=== PATIENT | male | born 1930 | race Caucasian/White ===

== ENCOUNTER 2016-05-18 13:48 | Inpatient (IN) ==
[2016-05-18] MEDS ORDERED: 0.9 % Sodium Chloride 500 ML IVC ONE ×2 (14:04→16:19)
--- NOTE | 2016-05-18 14:32 | Emergency Department Note ---
Disposition Clinical Impression: SIRS (systemic inflammatory response syndrome), Multiple lung nodules Ascites Qualifiers: Ascites type: other type Qualified Code(s): R18.8 - Other ascites Disposition: Admitted As Inpatient Condition: Good General Adult HPI - General Chief complaint: ED Shortness of Breath/Dyspnea Stated complaint: leonor/abd swelling Time Seen by Provider: 05/18/16 13:51 Source: patient, EMS Limitations: age Nursing Notes Reviewed: Yes Vital Signs Reviewed: Yes - History of Present Illness HPI Narrative: Patient states a 2 day history of increased abdominal swelling. Associated with shortness of breath. He states he does not ambulate well so he cannot inform if he has getting short of breath whenever he walks. He does have a history of CHF. Denies a history of cancer. He denies any fevers. Never had abdominal swelling with this before. Has had a pleural effusion that was drained one year ago. Pain Scale: 0 - Related Data Home Medications Medication Instructions Recorded Confirmed Amiodarone [Cordarone] 200 mg PO DAILY 11/21/15 05/18/16 Atorvastatin [Lipitor] 10 mg PO HS 11/21/15 05/18/16 Tamsulosin [Flomax] 0.4 mg PO DAILY 11/21/15 05/18/16 Gabapentin [Neurontin] 100 mg PO TID 02/22/16 05/18/16 Furosemide [Lasix] 40 mg PO BID 05/18/16 05/18/16 Previous Rx's Medication Instructions Recorded Aspirin 81 mg PO DAILY #60 tab.chew 01/24/15 Carvedilol 3.125 mg PO BID 30 Days 02/26/16 Potassium Chloride [K-Tab ER] 20 meq PO DAILY #14 tablet.er 02/26/16 Allergies Allergy/AdvReac Type Severity Reaction Status Date / Time No Known Allergies Allergy Verified 02/22/16 17:25 Review of Systems: Denies any fever. Increasing shortness of breath over the past 2 days. Denies a cough. Increasing abdominal girth over the past 2 days as well. Denies any abdominal pain. Denies any nausea vomiting or diarrhea. Has had a decrease in urination. Denies any changes in stool. Denies any hematochezia or melena or vishnu blood per rectum. Denies any chest pain. Reports a constant swelling in his lower extremities. All systems ED: reviewed and negative except as stated. Past Medical History - Past Medical History Attestation: Yes The following information was validated with the patient. Source: patient Medical history: Reports: cardiomyopathy, CHF, hyperlipidemia, hypertension, other Surgical history: Reports: no surgical history, orthopedic, other Psychiatric history: Reports: no psych history - Social History Smoking Status: Former smoker Smokeless Tobacco Status: No Alcohol use: Reports: none Drug use: Reports: none Physical Exam - General Limitations: age General appearance: alert, in no apparent distress - Head Head exam: atraumatic, normocephalic, normal inspection - Eye Eye exam: Present: normal appearance, PERRL, EOMI - ENT ENT exam: normal exam, normal oropharynx, mucous membranes moist - Neck Neck exam: Present: normal inspection, full ROM, trachea midline - Chest Chest inspection: Present: normal inspection, symmetric chest wall rise - Respiratory Respiratory exam: Present: respiratory distress, other (Decreased lung sounds in right lower base.). Absent: wheezes, stridor - Cardiovascular Cardiovascular exam: Present: regular rate, normal rhythm - Abdominal Exam Abdominal exam: Present: soft, Non-Tender, distention, normal bowel sounds, other (Fluid wave present.). Absent: tenderness, guarding, rebound, rigidity, diminished bowel sounds - Extremities Exam Extremities exam: Present: normal inspection, full ROM, normal capillary refill , pedal edema (Pitting edema from feet to hips.). Absent: tenderness - Back Exam Back exam: Present: normal inspection, full ROM. Absent: tenderness, CVA tenderness (R), CVA tenderness (L) - Neurological Exam Neurological exam: Present: alert, oriented X3 - Psychiatric Psychiatric exam: Present: normal affect, normal mood - Skin Skin exam: Present: warm, dry, intact, normal color. Absent: rash, cyanosis, diaphoresis Course Course Narrative: Two-day history of shortness of breath and increased abdominal swelling. Patient had a pleural effusion one year ago that had to be drained. He has never had abdominal swelling such as this. He denies any cancer or liver problems.. He denies any fever. He denies any chest pain. He does have a history of congestive heart failure. He has pitting edema to his hips. - Reevaluation(s) Reevaluation #1: Patient now meets sepsis criteria. He is tachypneic has a white count greater than 12 has a lactic acidosis. We will give patient a slow fluid bolus. He does have a history of CHF and we do not want overload this patient. Time: 14:55 Reevaluation #2: Patient's family arrived. They state that patient's blood pressure is normally low in the 90s systolic. They report one year ago patient was offered a lung biopsy to determine possible cancer of the lungs. He refused at that time. They have been made aware as has the patient this could possibly be cancer. They express understanding. We will admit patient. - Consultations Consultation #1: Dr Herrera accepted Pt in stable condition. Time: 16:51 Vital Signs Temperature 98 F 05/18/16 13:49 Pulse Rate 85 05/18/16 13:49 Respiratory Rate 22 05/18/16 13:49 Blood Pressure 88/71 05/18/16 13:49 O2 Sat by Pulse Oximetry 95 05/18/16 13:49 Temperature 97 F L 05/18/16 19:19 Pulse Rate 82 05/18/16 19:19 Respiratory Rate 17 05/18/16 19:19 Blood Pressure 95/66 05/18/16 19:19 O2 Sat by Pulse Oximetry 96 05/18/16 19:19 Oxygen Delivery Oxygen Delivery Nasal Cannula Medical Decision Making - Medical Records Medical records reviewed: Yes I reviewed the patient's medical records. - Lab Data Lab results reviewed: Yes I reviewed the patient's lab results. Result diagrams: 05/18/16 14:18 05/18/16 14:18 Lab Results 05/18/16 05/18/16 05/18/16 Range/Units 14:18 14:18 14:18 WBC 12.4 H (4.3-11.1) K/mcL RBC 5.11 (4.19-5.50) M/mcL Hgb 13.5 (12.9-16.9) g/dL Hct 42.7 (37.5-50.1) % MCV 83.6 (83.0-100.0) fL MCH 26.4 L (28.0-33.3) pg MCHC 31.6 (31.6-35.5) g/dL RDW 18.5 H (11.5-14.5) % Plt Count 300 (140-400) K/mcL MPV 11.2 (9.4-12.4) fL Immature Gran % 2.8 (0-4) % Seg Neutrophils % 79.5 % Lymphocytes % 4.4 % Monocytes % 11.4 % Eosinophils % 1.3 % Basophils % 0.6 % Neutrophils # 9.8 H (1.6-8.9) K/mcL Lymphocytes # 0.5 L (0.6-4.6) K/mcL Monocytes # 1.4 H (0.0-1.3) K/mcL Eosinophils # 0.2 (0.0-0.6) K/mcL Basophils # 0.1 (0.0-0.2) K/mcL PT 12.8 H (9.4-12.1) Seconds INR 1.2 APTT 27.0 (26.0-36.0) Seconds Sodium (136-145) mEq/L Potassium (3.5-4.5) mEq/L Chloride (98-109) mEq/L Carbon Dioxide (19-29) mEq/L BUN (8-26) mg/dL Creatinine (0.72-1.25) mg/dL Est GFR ( Amer) (> 60) Est GFR (Non-Af Amer) (> 60) BUN/Creatinine Ratio (6-26) Glucose (70-99) mg/dL Calculated Osmolality (280-300) Lactic Acid 3.5 H (0.5-2.2) mmol/L Calcium (8.6-10.8) mg/dL Phosphorus (2.3-4.7) mg/dL Magnesium (1.6-2.6) mg/dL Total Bilirubin (0.2-1.2) mg/dL AST (5-34) Units/L ALT (0-55) Units/L Alkaline Phosphatase (38-126) Units/L Troponin I (0-0.03) ng/mL B-Natriuretic Peptide (0-100) pg/mL Serum Total Protein (6.0-8.3) g/dL Albumin (3.5-5.0) g/dL Globulin (2.4-3.5) g/dL Albumin/Globulin Ratio (1.1-2.2) Specimen Rejected 05/18/16 05/18/16 05/18/16 Range/Units 14:18 14:18 14:18 WBC (4.3-11.1) K/mcL RBC (4.19-5.50) M/mcL Hgb (12.9-16.9) g/dL Hct (37.5-50.1) % MCV (83.0-100.0) fL MCH (28.0-33.3) pg MCHC (31.6-35.5) g/dL RDW (11.5-14.5) % Plt Count (140-400) K/mcL MPV (9.4-12.4) fL Immature Gran % (0-4) % Seg Neutrophils % % Lymphocytes % % Monocytes % % Eosinophils % % Basophils % % Neutrophils # (1.6-8.9) K/mcL Lymphocytes # (0.6-4.6) K/mcL Monocytes # (0.0-1.3) K/mcL Eosinophils # (0.0-0.6) K/mcL Basophils # (0.0-0.2) K/mcL PT (9.4-12.1) Seconds INR APTT (26.0-36.0) Seconds Sodium 135 L (136-145) mEq/L Potassium 5.7 H (3.5-4.5) mEq/L Chloride 98 (98-109) mEq/L Carbon Dioxide 26 (19-29) mEq/L BUN 50 H (8-26) mg/dL Creatinine 2.18 H (0.72-1.25) mg/dL Est GFR ( Amer) 35 L (> 60) Est GFR (Non-Af Amer) 29 L (> 60) BUN/Creatinine Ratio 23 (6-26) Glucose 116 H (70-99) mg/dL Calculated Osmolality 294 (280-300) Lactic Acid (0.5-2.2) mmol/L Calcium 8.8 (8.6-10.8) mg/dL Phosphorus 4.9 H (2.3-4.7) mg/dL Magnesium 2.5 (1.6-2.6) mg/dL Total Bilirubin 1.0 (0.2-1.2) mg/dL AST 43 H (5-34) Units/L ALT 25 (0-55) Units/L Alkaline Phosphatase 120 (38-126) Units/L Troponin I 0.11 H* (0-0.03) ng/mL B-Natriuretic Peptide 1094 H (0-100) pg/mL Serum Total Protein 5.9 L (6.0-8.3) g/dL Albumin 2.2 L (3.5-5.0) g/dL Globulin 3.7 H (2.4-3.5) g/dL Albumin/Globulin Ratio 0.6 L (1.1-2.2) Specimen Rejected 05/18/16 05/18/16 Range/Units 14:18 17:21 WBC (4.3-11.1) K/mcL RBC (4.19-5.50) M/mcL Hgb (12.9-16.9) g/dL Hct (37.5-50.1) % MCV (83.0-100.0) fL MCH (28.0-33.3) pg MCHC (31.6-35.5) g/dL RDW (11.5-14.5) % Plt Count (140-400) K/mcL MPV (9.4-12.4) fL Immature Gran % (0-4) % Seg Neutrophils % % Lymphocytes % % Monocytes % % Eosinophils % % Basophils % % Neutrophils # (1.6-8.9) K/mcL Lymphocytes # (0.6-4.6) K/mcL Monocytes # (0.0-1.3) K/mcL Eosinophils # (0.0-0.6) K/mcL Basophils # (0.0-0.2) K/mcL PT (9.4-12.1) Seconds INR APTT (26.0-36.0) Seconds Sodium (136-145) mEq/L Potassium (3.5-4.5) mEq/L Chloride (98-109) mEq/L Carbon Dioxide (19-29) mEq/L BUN (8-26) mg/dL Creatinine (0.72-1.25) mg/dL Est GFR ( Amer) (> 60) Est GFR (Non-Af Amer) (> 60) BUN/Creatinine Ratio (6-26) Glucose (70-99) mg/dL Calculated Osmolality (280-300) Lactic Acid 2.4 H (0.5-2.2) mmol/L Calcium (8.6-10.8) mg/dL Phosphorus (2.3-4.7) mg/dL Magnesium (1.6-2.6) mg/dL Total Bilirubin (0.2-1.2) mg/dL AST (5-34) Units/L ALT (0-55) Units/L Alkaline Phosphatase (38-126) Units/L Troponin I (0-0.03) ng/mL B-Natriuretic Peptide (0-100) pg/mL Serum Total Protein (6.0-8.3) g/dL Albumin (3.5-5.0) g/dL Globulin (2.4-3.5) g/dL Albumin/Globulin Ratio (1.1-2.2) Specimen Rejected Clotted - Radiology Data Radiology results reviewed: Yes I reviewed the patient's radiology results. - EKG Data EKG #1 EKG attestation: Yes I reviewed and interpreted this EKG. EKG results narrative: Ventricularly paced rhythm. Rate of 84. QRS duration is 231 QT is 513 QTC is 554. No sign of acute ischemia. No remarkable changes from prior in . Attestation Statement - Attestation Attestation: For this encounter, I have reviewed the resident, IC DESIGN MANAGER, or PA documentation, treatment plan, and medical decision making; and I have had face to face time with this patient. 86 yo male presents with concerns of difficulty breathing. Patient states he has had increased difficulty breathing over the past 2 days. Patient daughter noticed increased size of the patient's abdomen however he is unsure how long that his abdomen has been getting larger. Patient has a history of ulnar nodules with needing to have a pleurocentesis performed within the past year. Patient denies fever, chills, nausea, vomiting. He is hypotensive to 88 systolic however his baseline blood pressure is usually in the low 90s systolic. Patient is awake alert and not in distress in the emergency department. He is talking well however he is dyspneic with conversation. Patient has crackles in the bilateral posterior lung blandon bilaterally and has pitting edema in the bilateral lower extremities. He has a history of congestive heart failure in the past. Patient does meet sepsis criteria and will be given antibiotics and gentle hydration for possible pneumonia however his physical exam points more towards congestive heart failure and he was given Lasix. Patient comfortable with plan to be admitted to the hospital
[2016-05-18 14:36] LABS: Basophils # 0.1 K/mcL (0.0-0.2); Basophils % 0.6 %; Eosinophils # 0.2 K/mcL (0.0-0.6); Eosinophils % 1.3 %; Hematocrit 42.7 % (37.5-50.1); Hemoglobin 13.5 g/dL (12.9-16.9); Immature Granulocytes % 2.8 % (0-4); Lymphocytes # 0.5 K/mcL (0.6-4.6); Lymphocytes % 4.4 %; Mean Corpuscular HGB Conc 31.6 g/dL (31.6-35.5); Mean Corpuscular Hemoglobin 26.4 pg (28.0-33.3); Mean Corpuscular Volume 83.6 fL (83.0-100.0); Mean Platelet Volume 11.2 fL (9.4-12.4); Monocytes # 1.4 K/mcL (0.0-1.3); Monocytes % 11.4 %; Neutrophils # 9.8 K/mcL (1.6-8.9); Platelet Count 300 K/mcL (140-400); Red Blood Count 5.11 M/mcL (4.19-5.50); Red Cell Distribution Width 18.5 % (11.5-14.5); Segmented Neutrophils % 79.5 %
[2016-05-18 14:47] LABS: Albumin 2.2 g/dL (3.5-5.0); Albumin/Globulin Ratio 0.6 (1.1-2.2); Calcium 8.8 mg/dL (8.6-10.8); Globulin 3.7 g/dL (2.4-3.5); Total Protein 5.9 g/dL (6.0-8.3)
[2016-05-18 14:49] LABS: Potassium 5.7 mEq/L (3.5-4.5)
[2016-05-18 14:58] LABS: INR 1.2; Prothrombin Time 12.8 Seconds (9.4-12.1)
[2016-05-18] MEDS ORDERED: Levofloxacin 750 MG/150 ML 750 MG/150 ML BAG IVPB ONE (14:59)
[2016-05-18] MEDS ORDERED: Piperacillin/Tazobactam 3.375 GM in D5% in Water (Mini-Bag+) 100 ML IVPB ONE (14:59)
[2016-05-18] MEDS ORDERED: Vancomycin 1,000 MG VIAL IVPB ONE (14:59)
[2016-05-18] MEDS ORDERED: Furosemide 40 MG/4 ML VIAL IVP ONE (15:20)
[2016-05-18 15:58] LABS: Magnesium 2.5 mg/dL (1.6-2.6); Phosphorous 4.9 mg/dL (2.3-4.7)
[2016-05-18] MEDS ORDERED: Vancomycin 1,000 MG in D5% in Water 250 ML IVPB ONE (18:33)
[2016-05-18] MEDS ORDERED: Naloxone 0.4 MG/ML INJ IVP PRN (22:00)
--- NOTE | 2016-05-18 22:08 | Internal Med History&Physical ---
Date of Encounter: 05/19/16 Time of Encounter: 09:10 Assessment and Plan (1) Congestive heart failure (CHF) Current visit: Yes Status: Acute BNP elevated at 1094 and bilateral pitting edema present. Lasix 40mg BID IV, watch renal function closely. Repeat echocardiogram. Consult to cardiology Consideration of dobutamine infusion if repeat echocardiogram shows worsening ejection fraction. Chest Xray: cardiomegaly with mild pulmonary edema which is unchanged from February. Small right pleural effusion. Patchy bibasilar opacities present which can demonstrate atelectasis versus infiltrates which are unchanged as well. Qualifiers: Congestive heart failure type: systolic Congestive heart failure chronicity : acute on chronic Qualified Code(s): I50.23 - Acute on chronic systolic ( congestive) heart failure (2) Acute kidney injury Current visit: Yes Status: Acute Suspected cardio renal syndrome. Creatinine is elevated at 2.18. No history of chronic kidney disease. The patient has started on Lasix 40 mg BID IV. Will continue to monitor renal function with discontinuation of Lasix if worsening. Consideration of dobutamine infusion if repeat echocardiogram shows worsening ejection fraction. Consult to nephrology. (3) Carcinomatosis Current visit: Yes Status: Acute CT of the abdomen and pelvis demonstrated moderate to large ascites with infiltration of the omentum compatible with peritoneal carcinomatosis. The patient does not have an acute abdomen at this time. Will consider paracentesis if worsening. Consult to oncology. (4) Ascites Current visit: Yes Status: Acute The patient does not have an acute abdomen at this time. Will consider paracentesis if worsening. 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 CT of the chest in the emergency department demonstrated pulmonary and right pleural metastatic disease with thickened inter-lobular septa bilaterally possibly due to lymphangitic tumor, lymph obstruction, or interstitial edema. Mediastinal adenopathy, small bilateral pleural effusions. Consult to palliative care. (6) Elevated troponin Current visit: No Status: Acute Similar to previous troponins reviewed. Patient denies chest pain. I do not suspect and acute process. (7) Atrial fibrillation Current visit: No Status: Chronic Ventricular paced rhythm currently. 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 Continue amiodarone and carvedilol Qualifiers: Atrial fibrillation type: chronic Qualified Code(s): I48.2 - Chronic atrial fibrillation (8) Hyperkalemia Current visit: Yes Status: Acute hold potassium supplementation at this time, continue to monitor. (9) DVT prophylaxis Current visit: Yes Status: Acute Heparin 5000 units SQ Q8hr Internal Medicine - H&P: HPI Chief complaint: shortness of breath, abdominal distention Admitted From: Emergency Dept Plans for Post Hospital Care: Transfer Long-Term Facility History of present illness: Mr. Retana is a 86 year old male significant cardiomyopathy, CHF, hyperlipidemia, A. Fib, and hypertension who presented to the emergency department with shortness of breath and abdominal distention. The patient states that he has been having progressive weakness over the past 3 weeks and during that time has noted a 16 pound weight gain. He states that his weakness is mainly in his legs and caused him to have a fall 3 weeks ago. He does not note any focal numbness, and states that he has had difficulty with ambulation for some time now. This patient was found to have pulmonary nodules approximately one year ago and refused biopsy of the nodules at that time. He has a history of smoking were states that he quit 50 years ago. He states he has never abdominal swelling before, but noticed increasing in the size of his abdomen starting 2 days ago which has been continuous. This patient had a pleural effusion that was drained 1 year ago at the time of finding the pulmonary nodules. He notes that decrease in the amount of urine he has been producing over the last week. Denies any pain with urination and change of color of the urine. Past Med Surg Social Fam HX - Past Medical History Medical history: cardiomyopathy, CHF, hyperlipidemia, hypertension, other Psychiatric history: no psych history - Past Surgical History Surgical History: no surgical history, orthopedic, other, other (Valve replacement), pacemaker (May 2015) - Social History Smoking Status: Former smoker Smokeless Tobacco Status: No Alcohol use: none Drug use: none - Family History Father Son Living Status: Father Living Status: Hx Family Cardiac Disorders: No Hx Family Respiratory Disorders: No Hx Family Cancer: Yes Hx Family GI Disorders: No Hx Family Endocrine Disorder: No Hx Family Neuromuscular Disorders: No Hx Family Neurologic Disorders: No Hx Family HEENT Disorders: No Hx Family Autoimmune Disorders: No Mother Adopted: No Family Member Ethnicity: Non- Living Status: Hx Family Cardiac Disorders: No Hx Family Respiratory Disorders: No Hx Family Cancer: Yes (FATHER OF CANREYES) Hx Family GI Disorders: No Hx Family Endocrine Disorder: No Hx Family Neuromuscular Disorders: No Hx Family Neurologic Disorders: Yes Hx Family HEENT Disorders: No Hx Family Autoimmune Disorders: No Internal Medicine - H&P: Meds Aspirin 81 mg PO DAILY #60 tab.chew 01/24/15 [Rx] Amiodarone [Cordarone] 200 mg PO DAILY 11/21/15 [History] Atorvastatin [Lipitor] 10 mg PO HS 11/21/15 [History] Tamsulosin [Flomax] 0.4 mg PO DAILY 11/21/15 [History] Gabapentin [Neurontin] 100 mg PO TID 02/22/16 [History] Carvedilol 3.125 mg PO BID 30 Days 02/26/16 [Rx] Potassium Chloride [K-Tab ER] 20 meq PO DAILY #14 tablet.er 02/26/16 [Rx] Furosemide [Lasix] 40 mg PO BID 05/18/16 [History] Allergies No Known Allergies Allergy (Verified 02/22/16 17:25) All Systems PM: A 10-system review of systems was performed and is negative for pertinent findings except as documented above in the HPI. - Constitutional Constitutional: falls, weight gain (16 pounds over 3 weeks), no chills, no excessive sweating, no fever(s) - EENT Eyes: no change in vision, no discharge, no pain, no photophobia Ears: no ear discharge, no ear pain, no tinnitus Nose, mouth and throat: no dysphagia, no nasal discharge, no neck pain, no sore throat - Cardiovascular Cardiovascular ROS IM: dyspnea, edema, orthopnea, no chest pain, no irregular heart rhythm, no lightheadedness - Respiratory Respiratory: dyspnea, no cough, no wheezing, no excessive phlegm production - Gastrointestinal Gastrointestinal: no abdominal pain, no diarrhea, no melena, no nausea, no vomiting Additional comments: Abdominal distention - Musculoskeletal Musculoskeletal ROS IM: no numbness, no tingling - Integumentary Integumentary IM: no rash, no unusual bruising - Neurological Neurological ROS: no confusion, no convulsions, no focal weakness, no numbness, no tingling, no tremor(s) - Hematologic/Lymphatic Hematologic/Lymphatic: no easy bruising - Constitutional Vitals: Temp Pulse Resp BP Pulse Ox 97 F L 82 17 95/66 96 05/18/16 19:19 05/18/16 19:19 05/18/16 19:19 05/18/16 19:19 05/18/16 19:19 General appearance: Present: A&O X 3, pleasant, no acute distress, answers questions appropriately - Head Head exam: Present: atraumatic, normocephalic - Eye Eye exam: Present: PERRL, conjuntiva pink, sclera anicteric Pupils: Present: PERRL - Neck Neck exam general surgery: Present: supple, trachea midline - Respiratory Respiratory exam: Present: decreased breath sounds (Right lung base). Absent: accessory muscle use, rales, rhonchi, wheezes - Cardiovascular Cardiovascular exam: Present: RRR, +S1, +S2. Absent: diastolic murmur, gallop, rubs, systolic murmur - GI/Abdominal GI/Abdominal exam: Present: distended, normal bowel sounds, soft, no peritoneal signs. Absent: firm, guarding, rebound, rigid, tenderness Additional comments: Positive fluid wave - Extremities Exam Extremities exam: Present: pedal edema (Bilateral +3), warm, radial pulses palpable and symetrical. Absent: calf tenderness, cyanotic - Neurological Exam Neurological exam: Present: CN II-XII intact, oriented X3, no focal deficits. Absent: pronater drift, facial droop, speech deficit - Skin Skin exam: Present: dry, intact Internal Med - H&P Results - Labs CBC & Chem 7: 05/18/16 14:18 05/18/16 14:18 - Attending Attestation I examined this patient and my medical decision-making was reviewed with the CLINIC ADMINISTRATOR/PA/Advanced Practice Nurse/Resident Physician. I agree with the documented findings, disposition and treatment plan as described except to the extent set forth below.
[2016-05-18 23:25] LABS: Bilirubin,Urine Negative (Negative); Blood,Urine Negative (Negative); Clarity,Urine Clear (Clear); Color,Urine Yellow (Yellow); Glucose,Urine (UA) Normal (Normal); Ketones,Urine Negative (Negative); Leukocyte Esterase,Urine Trace (Negative); Nitrite,Urine Negative (Negative); PH,Urine 5.5 pH Units (5.0-8.0); Protein,Urine Negative (Neg-Trace); Specific Gravity,Urine 1.017 (1.010-1.025); Urobilinogen,Urine Normal (Normal)
[2016-05-18 23:52] LABS: RBC,Urine 0-3 per hpf (0-3); Squamous Epithelial Cell,Urine Few per lpf (None-Few); WBC,Urine 0-3 per hpf (0-3)
[2016-05-19 05:56] LABS: Basophils # 0.1 K/mcL (0.0-0.2); Basophils % 0.5 %; Eosinophils # 0.1 K/mcL (0.0-0.6); Eosinophils % 0.8 %; Hematocrit 38.6 % (37.5-50.1); Hemoglobin 12.4 g/dL (12.9-16.9); Immature Granulocytes % 2.5 % (0-4); Lymphocytes # 0.5 K/mcL (0.6-4.6); Lymphocytes % 3.9 %; Mean Corpuscular HGB Conc 32.1 g/dL (31.6-35.5); Mean Corpuscular Hemoglobin 26.8 pg (28.0-33.3); Mean Corpuscular Volume 83.4 fL (83.0-100.0); Mean Platelet Volume 10.7 fL (9.4-12.4); Monocytes # 1.2 K/mcL (0.0-1.3); Monocytes % 9.1 %; Neutrophils # 11.2 K/mcL (1.6-8.9); Platelet Count 252 K/mcL (140-400); Red Blood Count 4.63 M/mcL (4.19-5.50); Red Cell Distribution Width 18.1 % (11.5-14.5); Segmented Neutrophils % 83.2 %
--- NOTE | 2016-05-19 07:52 | Nephrology Consult Note ---
Date of Encounter: 05/19/16 Time of Encounter: 09:30 Assessment and Plan (1) Acute kidney injury Current Visit: Yes Status: Acute Non-oliguric ELÍAS: suspect a pre-renal process, but I will screen his UA with microscopy, check uric acid, Phos, CK and will need to r/o any post-renal component: check retroperitoneal U/S. Stopping the X-ethyxu-vvrwuup 20mEq (which was listed on his eCW outpt med list ) is appropriate. IVF (albeit gently) will help. Should check a BMP this afternoon to follow-up on the hyperkalemia Follow a renal protective strategy: dose any renally cleared Rx by GFR, avoid nephrotoxin exposures, avoid excessive hypotension (to help facilitate adequate renal perfusion). Daily weights and strict I/Os are necessary. Thank you for consulting the [facility]. (2) Carcinomatosis Current Visit: Yes Status: Acute (3) Congestive heart failure (CHF) Current Visit: Yes Status: Acute Qualifiers: Congestive heart failure type: systolic Congestive heart failure chronicity : acute on chronic Qualified Code(s): I50.23 - Acute on chronic systolic ( congestive) heart failure (4) Hyperkalemia Current Visit: Yes Status: Acute History of Present Illness - Reason for Consult Consult date: 05/19/16 Acute Kidney Injury Requesting physician: Tanmay Faustin - Chief Complaint ELÍAS - History of Present Illness 86 y/o WM with a pmh of AF, nonischemic CMP s/p pacer, s/p TAVR, chronic systolic HF, edema, pleural effusions, nodules, and et al who presented with progressive dyspnea, weight gain, and incidentally noted to have ELÍAS with hyperkalemia. I reviewed his outpatient records, inpatient [facility] records: no prior nephrology referral / consultation. He was receiving lasix 40mg po bid plus an Effervescent J-ifuttg-dcvgvnw 20mEq once daily. The KCl was held last night. He was found to have abd swelling and increased ascites, with noncontrast CT imaging reporting carcinomatosis. His home med list does not include NSAIDs. 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 He did not report uremic symptoms. Past Med Surg Social Fam HX - Past Medical History Medical history: cardiomyopathy, CHF, hyperlipidemia, hypertension, other Psychiatric history: no psych history - Past Surgical History Surgical History: no surgical history, orthopedic, other, other (Valve replacement), pacemaker (May 2015) - Social History Smoking Status: Former smoker Smokeless Tobacco Status: No Alcohol use: none Drug use: none - Family History Father Son Living Status: Father Living Status: Hx Family Cardiac Disorders: No Hx Family Respiratory Disorders: No Hx Family Cancer: Yes Hx Family GI Disorders: No Hx Family Endocrine Disorder: No Hx Family Neuromuscular Disorders: No Hx Family Neurologic Disorders: No Hx Family HEENT Disorders: No Hx Family Autoimmune Disorders: No Mother Adopted: No Family Member Ethnicity: Non- Living Status: Hx Family Cardiac Disorders: No Hx Family Respiratory Disorders: No Hx Family Cancer: Yes (FATHER OF CANER) Hx Family GI Disorders: No Hx Family Endocrine Disorder: No Hx Family Neuromuscular Disorders: No Hx Family Neurologic Disorders: Yes Hx Family HEENT Disorders: No Hx Family Autoimmune Disorders: No Medications and Allergies Aspirin 81 mg PO DAILY #60 tab.chew 01/24/15 [Rx] Amiodarone [Cordarone] 200 mg PO DAILY 11/21/15 [History] Atorvastatin [Lipitor] 10 mg PO HS 11/21/15 [History] Tamsulosin [Flomax] 0.4 mg PO DAILY 11/21/15 [History] Gabapentin [Neurontin] 100 mg PO TID 02/22/16 [History] Carvedilol 3.125 mg PO BID 30 Days 02/26/16 [Rx] Potassium Chloride [K-Tab ER] 20 meq PO DAILY #14 tablet.er 02/26/16 [Rx] Furosemide [Lasix] 40 mg PO BID 05/18/16 [History] Allergies No Known Allergies Allergy (Verified 02/22/16 17:25) Review of Systems All Systems: reviewed and no additional remarkable complaints except as stated Exam - Vital Signs Vital signs: Initial Vital Signs Temp Pulse Resp BP Pulse Ox 98 F 85 22 88/71 95 05/18/16 13:49 05/18/16 13:49 05/18/16 13:49 05/18/16 13:49 05/18/16 13:49 Vital Signs - Last 8 Hours Temp Pulse Resp BP Pulse Ox 05/19/16 07:16 97.3 F L 70 16 93/61 96 05/19/16 04:18 97.7 F 72 18 102/89 97 Intake and Output 05/18/16 05/18/16 05/19/16 15:59 23:59 07:59 Intake Total 270 / 370 Output Total 400 / 400 150 / 150 Balance -130 / -30 -150 / -150 Intake: IV Fluids 150 / 150 Levaquin 750mg/150 mL 750 150 / 150 mg In 150 ml @ 100 mls/ hr IVPB ONCE ONE Rx#: [id number] Oral 120 / 120 Output: Urine 400 / 400 150 / 150 Other: Weight 87 kg 87 kg Patient Weight 05/19/16 23:59 Weight 87 kg - General Appearance General appearance: well-developed, well-nourished, appears started age, obese EENT: ATNC, PERRL, mucous membranes moist Neck: supple Respiratory: clear Cardiology: edema (1+ pretibial pitting edema), regular rate, normal S1, normal S2 Gastrointestinal: normoactive bowel sounds, distended Integumentary: no rash, warm and dry Neurologic: no focal deficit, no asterixis, alert and oriented x3 Musculoskeletal: no deformities, no erythema, no clubbing Psychiatric: mood/affect appropriate, cooperative Results - Lab Results 05/19/16 05:14 05/19/16 08:18 Most recent lab results Calcium 8.8 mg/dL (8.6-10.8) 05/18/16 14:18 Phosphorus 4.9 mg/dL (2.3-4.7) H 05/18/16 14:18 Magnesium 2.5 mg/dL (1.6-2.6) 05/18/16 14:18 I reviewed the above data, vitals, medical records, imaging, labs, etc. Consult Discharge Plan - Plan Referrals: Rex Rubi MD [Primary Care Provider] -
--- NOTE | 2016-05-19 08:15 | Cardiology Consult Note ---
Date of Encounter: 05/19/16 Time of Encounter: 09:18 Assessment and Plan (1) Systolic CHF, acute on chronic Current Visit: No Status: Acute Progressive dyspnea with 16lb weight gain in 3 weeks with BNP 1094 CXR: Cardiomegaly with mild pulmonary edema, unchanged. Stable small right pleural effusion. Patchy bibasilar opacities are present, and could represent atelectasis or infiltrates, although they appear unchanged from prior exams. CT Chest: Pulmonary and right pleural metastatic disease. Thickened interlobular septa bilaterally may be due to lymphangitic tumor, lymphatic obstruction, or interstitial edema. Mediastinal adenopathy. Small bilateral pleural effusions. Ascites, with infiltration of the omentum compatible with peritoneal carcinomatosis. Concern that weight gain, dyspnea and fluid retention 2/2 malignant effusion and ascites -> oncology consulted. Patient appears fluid overloaded on exam. Takes 40mg Lasix BID at home, reports being compliant. Appears to have ELÍAS here -> Cr 2.18 Gentle IV diuresis with close monitoring of renal function. Recommend paracentesis. (2) Elevated troponin Current Visit: No Status: Acute Troponin of 0.11 Similar to his previous levels dating back to 2014. Likely multifactorial in the setting of acute chf exacerbation with ELÍAS. Continue to trend. (3) Aortic stenosis Current Visit: No Status: Chronic S/P TAVR 05/06 Qualifiers: Cardiac valve disease etiology: nonrheumatic Qualified Code(s): I35.0 - Nonrheumatic aortic (valve) stenosis (4) Coronary artery disease Current Visit: No Status: Chronic [facility]: 02/11/15 Left main coronary artery angiographically free of disease. LAD 40 % calcified stenosis in the proximal LAD. 30% calcifie stenosis in the Mid LAD. 25% stenosis in the Mid Circumflex. 30% stenosis in the Distal Circumflex. 30% stenosis in the ramus. RCA is angiographically free of disease. Right PDA is angiographically free of disease. Right coronary artery is small in size. Qualifiers: Coronary Disease-Associated Artery/Lesion type: [place] artery [place] vs. transplanted heart: [place] heart Associated angina: without angina Qualified Code(s): I25.10 - Atherosclerotic heart disease of [place] coronary artery without angina pectoris Discussion w patient/family: The assessment and plan as outlined above was discussed with the patient and/or family members who expressed understanding and agreement. All questions were answered. Thank you for involving us in the care of your patient. Please call with any questions. History of Present Illness Consult date: 05/19/16 Requesting physician: Tanmay Faustin Consult reason: CHF Chief complaint: CHF History of present illness: Mr. Retana is a 86 year old male hx of nonischemic cardiomyopathy, atrial fibrillation not currently on anticoagulation due to history of bloody pleural effusions, Aortic stenosis s/p TAVR, chronic systolic CHF class 3, Pacemaker placement, recurrent pleural effusions who presented to the hospital due to shortness of breath and abdominal distention. Patient reports generalized weakness for the last 3 weeks at home. He states that over this time he has gained 16 pounds. He denies any change in his diet or noncompliance with his medications. He reports increased swelling in his abdomen and legs. He denies any chest pain during this. Has had some shortness of breath. Patient did have a thoracentesis roughly 1 year ago for pleural effusion. Pulmonary nodules were discovered at that time. He reports he did not go to the appointment at [facility] where they were going to biopsy it. Reports that his blood pressure usually runs low at home ~90 systolic. Initial workup in the emergency room: Chest x-ray reported as cardiomegaly with mild pulmonary edema with stable small right pleural effusion. Patchy bibasilar opacities which could represent atelectasis or infiltrates although unchanged from prior exam. CT of the chest: Pulmonary and right pleural metastatic disease, thickened interlobular septa bilaterally may be due to lymphangitic tumor, lymphatic obstruction or interstitial edema, mediastinal adenopathy, small bilateral pleural effusions, ascites with infiltration of the omentum compatible with peritoneal carcinomatosis. CT of the abdomen and pelvis: Diffuse pulmonary metastatic disease partially imaged in the lung bases. This is fully characterized by current chest CT. Moderate-large amount of ascites and diffuse nodularity of the greater omentum concerning for carcinomatosis. No other evidence of primary malignancy and the organs or bowel on the noncontrast CT. Echo: 02/12/16 LVEF 40%. Normal LV chamber size and function. Moderate concentric left ventricular hypertrophy. Atypical septal motion consistent with paced rhythm. Indeterminate diastolic function. Normal appearing right ventricular size and mildly reduced function. Moderately dilated left atrium. Bioprosthetic aortic valve appears well seated in the LVOT, but leaflets were not well visualized. By Doppler it demonstrates normal function. Mild-moderate tricuspid regurgitation. Borderline mild pulmonary hypertension. RVSP 35. A device lead was visualized in the right atrium and right ventricle. [facility]: 02/11/15 Left main coronary artery angiographically free of disease. LAD 40 % calcified stenosis in the proximal LAD. 30% calcifie stenosis in the Mid LAD. 25% stenosis in the Mid Circumflex. 30% stenosis in the Distal Circumflex. 30% stenosis in the ramus. RCA is angiographically free of disease. Right PDA is angiographically free of disease. Right coronary artery is small in size. Past Med Surg Social Fam HX - Past Medical History Attestation: Yes The following information was validated with the patient. Source: patient Medical history: cardiomyopathy, CHF, hyperlipidemia, hypertension, other Psychiatric history: no psych history - Past Surgical History Surgical History: no surgical history, orthopedic, other, other (Valve replacement), pacemaker (May 2015) - Social History Smoking Status: Former smoker Smokeless Tobacco Status: No Alcohol use: none Drug use: none - Family History Father Son Living Status: Father Living Status: Hx Family Cardiac Disorders: No Hx Family Respiratory Disorders: No Hx Family Cancer: Yes Hx Family GI Disorders: No Hx Family Endocrine Disorder: No Hx Family Neuromuscular Disorders: No Hx Family Neurologic Disorders: No Hx Family HEENT Disorders: No Hx Family Autoimmune Disorders: No Mother Adopted: No Family Member Ethnicity: Non- Living Status: Hx Family Cardiac Disorders: No Hx Family Respiratory Disorders: No Hx Family Cancer: Yes (FATHER OF CANER) Hx Family GI Disorders: No Hx Family Endocrine Disorder: No Hx Family Neuromuscular Disorders: No Hx Family Neurologic Disorders: Yes Hx Family HEENT Disorders: No Hx Family Autoimmune Disorders: No Medications and Allergies Aspirin 81 mg PO DAILY #60 tab.chew 01/24/15 [Rx] Amiodarone [Cordarone] 200 mg PO DAILY 11/21/15 [History] Atorvastatin [Lipitor] 10 mg PO HS 11/21/15 [History] Tamsulosin [Flomax] 0.4 mg PO DAILY 11/21/15 [History] Gabapentin [Neurontin] 100 mg PO TID 02/22/16 [History] Carvedilol 3.125 mg PO BID 30 Days 02/26/16 [Rx] Potassium Chloride [K-Tab ER] 20 meq PO DAILY #14 tablet.er 10/06/16 [Rx] Furosemide [Lasix] 40 mg PO BID 05/18/16 [History] Allergies No Known Allergies Allergy (Verified 02/22/16 17:25) All Systems Review: A 10-system review of systems was performed and is negative for pertinent findings except as documented above in the HPI. - Constitutional Constitutional: weakness, weight gain, no fever(s) - Cardiovascular Cardiovascular: dyspnea at rest, dyspnea on exertion, no chest pain at rest, no chest pain with exertion, no palpitations - Respiratory Respiratory: dyspnea - Gastrointestinal Gastrointestinal: other (abdominal distention), no abdominal pain Physical Examination Vital Signs, Last 4 Hours Temp Pulse Resp BP Pulse Ox 05/19/16 07:16 97.3 F L 70 16 93/61 96 05/19/16 04:18 97.7 F 72 18 102/89 97 General: Conversant, No Apparent Distress HEENT: Atraumatic, Normocephaly, Mucus Membranes Moist Neck: No JVD Cardiac: Reg Rate and Rhythm, Normal S1 and S2, No Murmur Lungs: Normal Breath Sounds, No Wheeze, Rales, Rhonchi Neuro: Alert and responsive, No focal deficits noted Abdomen: Soft, Other (distended) Skin: No rashes noted on visualized skin Musculoskeletal: No Chest Wall Tenderness Extremities: No Clubbing, No Cyanosis, Normal Pulses, Other (2+ BLE pitting edema) Results 05/19/16 05:14 05/18/16 14:18 Lab Results 05/19/16 05:14 WBC 13.5 H Hgb 12.4 L Hct 38.6 Plt Count 252 - Imaging and Cardiology Chest Xray: report reviewed, image reviewed Echo: report reviewed (02/12/16) Cardiac cath: report reviewed (02/11/15) - EKG Interpretation EKG results cardiology: personally reviewed (Ventricularly paced rhythm.) Consult Discharge Plan - Plan Referrals: Rex Rubi MD [Primary Care Provider] -
[2016-05-19] MEDS: Gabapentin 100 MG CAPSULE PO SCH ×3 (09:22→20:47)
[2016-05-19] MEDS: *HR* Amiodarone 200 MG TABLET PO SCH (09:22)
[2016-05-19] MEDS: Aspirin 81 MG TAB.CHEW PO SCH (09:22)
[2016-05-19] MEDS: *HR* Heparin 5,000 UNIT/ML VIAL SQ SCH ×3 (09:22→23:24)
--- NOTE | 2016-05-19 09:49 | Event Note ---
<Johnathon Tompkins - Last Filed: 05/19/16 16:28> Date of Encounter: 05/19/16 Time of Encounter: 16:00 Patient was eating today. after his paracentesis he feels better, with improved shortness of breath. his legs are edematous. he is alert and oriented x3, and is stable. blood pressure slight hypotension. Patient received IR diagnostic and therapeutic paracentesis. weakness/sob likely 2/2 to pulmonary metastatic disease with lymphangitic edema bilaterally, greater on the R - consult to oncology for initial assessment - holding lasix due to his lower blood pressures ascites 2/2 to likely nodulairty of the greater omentum concerning for peritoneal carcinomatosis -patient's CT AP showed carcinomatosis -pt has no history of alcoholism,hepatitis c he states. no hitsory of liver disease. -obtained fluid studies follow up. systolic chf - EF 02/11 lve 40%, bioprosthetic valve, mild mod tricuspid regurg - he is s/p TAVR - also hypotensive - he is on lasix 40mg po bid at home. held lasix today due to low bp, he appears dry, will give fluids maintenance at 80cc/hr, and some albumin. - likely OK to cont his lasix tomorrow and cont to monitor fluid status. - ty cardiology for recommendations ELÍAS likely prerenal per nephrology -ty neph for recs - strict i/o and daily weights Chest X-Ray 05/18/16 14:04 IMPRESSION: Cardiomegaly with mild pulmonary edema, unchanged. Stable small right pleural effusion. Patchy bibasilar opacities are present, and could represent atelectasis or infiltrates, although they appear unchanged from prior exams. D/ / 05/18/2016 14:30:04 Ricky Capone MD / Araceli Ronquillo Interpreting Provider: Ricky Capone MD Abdomen/Pelvis CT 05/18/16 14:33 IMPRESSION: 1. Diffuse pulmonary metastatic disease partially imaged in the lung bases. This is fully characterized on the current chest CT. 2. Moderate-large amount of ascites and diffuse nodularity of the greater omentum concerning for carcinomatosis. 3. No other evidence of primary malignancy in the organs or bowel on the noncontrast CT. D/ / 05/18/2016 15:46:32 Carlton Degroot MD / doug Interpreting Provider: Carlton Degroot MD Chest CT 05/18/16 14:42 IMPRESSION: 1. Pulmonary and right pleural metastatic disease 2. Thickened interlobular septa bilaterally may be due to lymphangitic tumor, lymphatic obstruction, or interstitial edema 3. Mediastinal adenopathy 4. Small bilateral pleural effusions 5. Ascites, with infiltration of the omentum compatible with peritoneal carcinomatosis D/ / Neo Butterfield MD / Neo Butterfield MD Interpreting Provider: Neo Butterfield MD Paracentesis Ultrasound 05/19/16 06:37 IMPRESSION: Successful ultrasound guided paracentesis. D/ / Tucker Moran MD / Tucker Moran MD Interpreting Provider: Tucker Moran MD <Major Cadet - Last Filed: 05/19/16 17:47> Mr. Retana is currently admitted for acute resp distress related to massive ascites - most likely exudative related to carcinamatosis. He is high risk due to potential for vascular and respiratory compromise as well as new tumor. Mr. Retana is resting comfortably. He had 4600ml removed in paracentesis today. No pain. No diarrhea. No cough. Breathing better after paracentesis. Exam Alert. Comfortable flat in bed. Mucus membranes moist Heart reg Lungs diminished Abd less distended and soft Edema present Current labs reviewed I/P 1. Anasarca - most likely related to massive ascites and possibly portal hypertension as well as systolic CHF. BP borderline for any more diuresis. 2. Massive ascites - most likely malignant. Path pending. 3. Peritoneal carcinomatosis 4. Lung nodule 5. Hypotension - most likely due to hypovolemia. He is now receiving albumin/ fluids. 6. Chronic a fib 7. Hyperkalemia Palliative care consult.
--- NOTE | 2016-05-19 10:00 | Electrocardiograph Report ---
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
--- NOTE | 2016-05-19 11:16 | Palliative - Consult Note ---
Date of Encounter: 05/19/16 Time of Encounter: 10:00 - Assessment and Plan (1) Dyspnea Current Visit: Yes Status: Acute Assessment and plan: Patient SOB with conversation. Ascites and CHF. Continue O2 and diuretics. Would benefit from paracentesis. Qualifiers: Dyspnea type: dyspnea on exertion Qualified Code(s): R06.09 - Other forms of dyspnea (2) Goals of care, counseling/discussion Current Visit: Yes Status: Acute Assessment and plan: Patient currently lives at home with and son. Reports using a walker to ambulate but has been getting weaker over past month. Patient denies having advanced directives in place but interested in drafting DPOA forms. Patient reports that daughter Tia lives close to him and he desires her to be DPOA. He reports having discussions with her about this in the past and Angelia agrees to this. Patient awaiting Oncology consult for peritoneal carcinomatosis. We discussed CPR and mechanical ventilation and at present the patient has expressed wanting these things but would prefer his and daughter be present. The patient has 3 children who are all engaged in his care. Son Richi lives with the patient and daughter Tia and Angelica are engaged as well. He reports that his Angelia is in fair health and has poor vision. At baseline he can ambulate around the house and yard with a walker. I called daughter Tia and she is coming in for a meeting at 1330 today and bringing Angelia the patients daughter. I will discuss the patients current POC and f/u on Code status desires. Ideally, I want to see Oncology recommendations before discussions for possible hospice care given the suspected carcinomatosis. 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 (5) Congestive heart failure (CHF) Current Visit: Yes Status: Acute Qualifiers: Congestive heart failure type: systolic Congestive heart failure chronicity : acute on chronic Qualified Code(s): I50.23 - Acute on chronic systolic ( congestive) heart failure (6) Cardiomyopathy Current Visit: No Status: Acute Qualifiers: Cardiomyopathy type: unspecified Qualified Code(s): I42.9 - Cardiomyopathy , unspecified (7) Pulmonary nodule Current Visit: No Status: Acute Palliative-CN HPI - Data of Consult Patient: new to practice Consult date: 05/19/16 Requesting Physician: Tanmay Faustin Primary Care Provider: Rex Rubi MD - Consult Narrative Palliative Care/Comfort Measures: Palliative care Reason for consult: Goals of Care History of present illness: Mr. Retana is a very nice 86 year old male, admitted with SOB and c/o bloated belly. Upon this consult he is alert and oriented and sitting at bedside. He states that he is somewhat SOB with lengthy conversation. He reports having a 16 lb weight gain over the past weeks at home. He reports having an increase in weakness, abdominal swelling and leg swelling. History includes: nonischemic cardiomyopathy, atrial fibrillation, aortic valve replacement for stenosis, chronic systolic class 3 CHF. 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 Patient reports having had a thoracentesis over a year ago for pleural effusion from pulmonary nodules and was referred to [facility] but declined to f/u with them. The patients medical record was reviewed and a he was able to provide a good history of events. This palliative care consult is for goals of care planning. CC: Major Cadet, DO Past Med Surg Social Fam HX - Past Medical History Source: patient, old records reviewed, obtained from family Medical history: atrial fibrillation, cardiomyopathy, CHF, hyperlipidemia, hypertension, other Psychiatric history: no psych history - Past Surgical History Surgical History: no surgical history, orthopedic, other, pacemaker/AICD, other (Valve replacement), pacemaker (May 2015) - Social History Smoking Status: Former smoker Smokeless Tobacco Status: No Alcohol use: none Drug use: none Occupational status: retired Current living situation: Home, With Family (son Richi and Angelia) Activity Level: Uses cane/walker Recent Out of Country Travel Within the Last 8 Weeks: No Exposure or Possible Exposure to Illness During Travel: No - Family History Father Son Living Status: Father Living Status: Hx Family Cardiac Disorders: No Hx Family Respiratory Disorders: No Hx Family Cancer: Yes Hx Family GI Disorders: No Hx Family Endocrine Disorder: No Hx Family Neuromuscular Disorders: No Hx Family Neurologic Disorders: No Hx Family HEENT Disorders: No Hx Family Autoimmune Disorders: No Mother Adopted: No Family Member Ethnicity: Non- Living Status: Hx Family Cardiac Disorders: No Hx Family Respiratory Disorders: No Hx Family Cancer: Yes (FATHER OF CANER) Hx Family GI Disorders: No Hx Family Endocrine Disorder: No Hx Family Neuromuscular Disorders: No Hx Family Neurologic Disorders: Yes Hx Family HEENT Disorders: No Hx Family Autoimmune Disorders: No Medications and Allergies Aspirin 81 mg PO DAILY #60 tab.chew 01/24/15 [Rx] Amiodarone [Cordarone] 200 mg PO DAILY 11/21/15 [History] Atorvastatin [Lipitor] 10 mg PO HS 11/21/15 [History] Tamsulosin [Flomax] 0.4 mg PO DAILY 11/21/15 [History] Gabapentin [Neurontin] 100 mg PO TID 02/22/16 [History] Carvedilol 3.125 mg PO BID 30 Days 02/26/16 [Rx] Potassium Chloride [K-Tab ER] 20 meq PO DAILY #14 tablet.er 02/26/16 [Rx] Furosemide [Lasix] 40 mg PO BID 05/18/16 [History] Allergies No Known Allergies Allergy (Verified 02/22/16 17:25) All systems: reviewed and no additional remarkable complaints except as stated ( weakness, abdominal bloating, swelling of the legs and ankles) - Constitutional Additional comments: weight gain - Cardiovascular Cardiovascular ROS: dyspnea on exertion, edema, pedal edema - Respiratory Respiratory: dyspnea, dyspnea on exertion - Gastrointestinal Gastrointestinal: abdominal pain (ascites) - Genitourinary Genitourinary ROS male: urinary incontinence - Musculoskeletal Musculoskeletal ROS IM: muscle weakness - Neurological Neurological ROS: weakness Palliative Care-Exam - Constitutional Vitals: Temp Pulse Resp BP Pulse Ox 97.3 F L 70 16 93/61 96 05/19/16 07:16 05/19/16 07:16 05/19/16 07:16 05/19/16 07:16 05/19/16 08:00 General appearance: Present: cooperative - Head Head Exam: Present: atraumatic, normal inspection, normocephalic - Eye Eye exam: Present: PERRL Pupils: Present: PERRL - ENT ENT exam: Present: mucous membranes moist - Neck Neck exam: Present: full ROM - Respiratory Respiratory exam: Present: decreased breath sounds - Expanded Respiratory Exam Location: decreased breath sounds: Left, Right, Lower, rales: Left, Right, Upper (scattered ) - Cardiovascular Cardiovascular exam: Present: +S1, +S2 - Expanded Cardiovascular Exam Type of murmur: Present: systolic Location: Present: LUSB Peripheral pulses: 1+: Femoral (L) PM, Femoral (R) PM, Posterior Tibialis (L), Posterior Tibialis (R), 2+: Carotid (L) PM, Carotid (R) PM, Radial (L), Radial ( R), Dorsalis Pedis (L) PM, Dorsalis Pedis (R) PM - GI/Abdominal Exam GI/Abdominal exam: Present: distended (hypoactive BS, general ascites), firm - Expanded GI/Abdominal Exam GI/Abdominal exam: Present: ascites - Rectal Rectal Exam: Present: deferred - Extremities Exam Extremities exam: Present: pedal edema (3+ pitting) - Expanded Upper Extremities Exam Upper Arm exam: Present: full ROM Forearm wrist exam: Present: full ROM - Expanded Lower Extremities Exam Upper Leg exam: Present: full ROM Lower Leg exam: Present: full ROM - Back Exam Back exam: Present: full ROM - Neurological Exam Neurological exam: Present: alert, CN II-XII intact, oriented X3 - Psychiatric Psychiatric exam: Present: normal mood - Skin Skin exam: Present: pallor, warm Internal Medicine - CN: Reslt - Labs CBC & Chem 7: 05/19/16 05:14 05/18/16 14:18 - ABG Interpretation ABG results: PT/INR, D-dimer PT 12.8 Seconds (9.4-12.1) H 05/18/16 14:18 - Imaging and Cardiology CT scan - abdomen Status: image reviewed by me Chest x-ray Status: image reviewed by me CT scan - chest Status: image reviewed by me Consult Discharge Plan - Plan Referrals: Rex Rubi MD [Primary Care Provider] - Palliative Quality Palliative Quality: Screen for Code Status: Yes, Screen for Goals of Care: Yes, Screen for Pain: Yes, If Pain Regimen Started, Initiate Bowel Regimen: No, Screen for Nausea/Vomitting: Yes
--- NOTE | 2016-05-19 11:32 | IR Procedure Note ---
Date of procedure: 05/19/16 Consent Obtained: Written consent Timeout: Correct patient and procedure verified, Correct site verified, Time out performed, Skin prep completed Local anesthetic: Lidocaine 1% Indications: Ascites Procedure Performed: Paracentesis Site/Technique: RLQ access Results/Findings: Dark sukhdev fluid, 4500ml out Estimated blood loss (cc): 1 Complications: None; Tolerated procedure well Post Procedure Treatment Plan: Monitoring in pts room
[2016-05-19 11:58] LABS: Albumin 2.2 g/dL (3.5-5.0); Albumin/Globulin Ratio 0.6 (1.1-2.2); Bilirubin,Total 1.1 mg/dL (0.2-1.2); Globulin 3.9 g/dL (2.4-3.5); Total Protein 6.1 g/dL (6.0-8.3)
[2016-05-19 12:17] LABS: Carcinoembryonic Antigen 3.2 ng/mL (0-5.0)
[2016-05-19 13:30] LABS: Appearance of Body Fluid Hazy (Clear); Total Protein,Peritoneal Fluid 3.1 g/dL (No Ref Range); Volume of Body Fluid 60 mL
--- NOTE | 2016-05-19 14:29 | Event Note ---
Date of Encounter: 05/19/16 Time of Encounter: 13:00 Conducted family meeting with patient, Angelia, daughter Tia and son Jerry. Discussed CHF, ascites, and overall condition. I explained that patient has pulmonary nodules and Oncology consult is pending. Patient is aware that he has pulmonary nodules and wasn't open to having aggressive treatment for these in the past. The patient and family agree to hearing Oncology input. I discussed the possibility of metastatic cancer and possible limitations of treatment given his age and cardiac disease. They verbalized understanding and agree to let the patient make any decisions regarding treatment if there are options. I also discussed hospice care and that this would certainly be appropriate. Code status discussion was had and discussion of CPR, Defibrillation, ACLS meds and intubation was explained. The patient is not sure at this time about intubation vs short /intermodal dispatcher intubation. I explained that CPR and intubation go together for optimal outcome. They desire to discuss this further. For now, the patient remains a Full Code. Plan is for another meeting tomorrow to discuss Oncology input. Patient had paracentesis today to remove 4600 ml and his dyspnea has improved. I did explain that malignant ascites can be managed while in hospice care for symptom improvement. Plan is to await Oncology input and conduct family meeting tomorrow to further discuss POC.
[2016-05-19 14:41] LABS: Calcium 8.7 mg/dL (8.6-10.8); Potassium 5.4 mEq/L (3.5-4.5)
[2016-05-19] MEDS: Furosemide 40 MG/4 ML VIAL IVP SCH ×2 (16:19→21:02)
[2016-05-19] MEDS: Folic Acid 1 MG TABLET PO SCH (17:04)
[2016-05-19] MEDS: Thiamine (B-1) 100 MG TABLET PO SCH (17:04)
[2016-05-19] MEDS: Cyanocobalamin (B-12) 1,000 MCG TABLET PO SCH (17:04)
[2016-05-19] MEDS: 0.9 % Sodium Chloride 1,000 ML IVC SCH (17:36)
--- NOTE | 2016-05-19 19:33 | Oncology Inp Consult Note ---
Date of Encounter: 05/19/16 Time of Encounter: 19:31 - Data of Consult Patient: new to practice Consult date: 05/19/16 Requesting Physician: Major Cadet DO Primary Care Provider: Rex Rubi MD - Consult Narrative Reason for consult: Metastatic cancer unknown primary site. History of present illness: Mr. Retana is a 86 year old gentleman seen in consultation regarding suspected metastatic cancer of unknown primary site. Patient initially presented 05/18/16 with progressive abdominal distention and increasing shortness of breath. Abdomen CT on admission showed a moderate to large amount of ascites with diffuse nodularity about the greater omentum concerning for carcinomatosis. Incidental note was made of diffuse pulmonary nodules concerning for metastatic disease. No other evidence of primary malignancy in the organs or bowels on noncontrast imaging. Subsequent chest CT confirmed: Pulmonary and right pleural metastatic disease.Just was a 3.8 cm right upper lobe mass. Thickened interlobar septa bilaterally possibly due to lymphangitic tumor/ lymphatic obstruction/interstitial edema. Mediastinal adenopathy. Small bilateral pleural effusions. 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 Earlier today, he had paracentesis of 4500 cc of sukhdev fluid by IR. Cytology is pending. Patient seen and examined at this time. Chart reviewed for details of ongoing care by hospital team and multispecialty follow-up. Personal Consultant following due to acute kidney injury on initial presentation with creatinine as high as 2.1. Kidney function is steadily improving. Desulphurizer Operator following due to suspected CHF exacerbation. Patient also has aortic stenosis status post TAVR procedure in April 2015 at [facility]. Palliative care team is also following for further discussion regarding goals of care in view of her advanced age and suspicion of diffuse malignancy. Patient is somewhat of a poor historian but is able to give a limited history is underlying cardiac history. On reviewing discharge, it appears that pulmonary nodules in a question have been documented as far back as December 2014 with the largest nodule measuring 8 mm at the time. He has had multiple thoracentesis procedure for recurrent pleural effusion all of which have returned negative for malignancy and only showing reactive changes. He was also evaluated by pulmonary at [facility] and chest CT from 08/15/15 also showed bilateral pulmonary nodules associated with diffuse mediastinal adenopathy suspicious for metastatic disease. Largest was a 1.8 cm right upper lobe nodule. PET/CT and biopsy was recommended at the time for further evaluation patient was less inclined was aggressive management due to advanced age and comorbidities and decided against further evaluation. No previous abdomen CT on the [facility] for comparison. He does have a limited smoking history and quit about 15 years ago. 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 I discussed patient's case with his daughter (Tia Silverio-[phone]) over the phone today and she confirmed essentially details of patient's clinical background noted on his chart. In spite of above, patient has fairly were preserved cognitive function and is in relatively good spirits. He is not having any acute discomfort and denies any new physical complaints at time of my evaluation. Rest of past medical, surgical, family, social history detailed below and verified with patient today. Review of systems: 12 point review of systems performed with patient and positive findings noted in history of present illness. All other systems are negative: Physical exam: Vital Signs Temp 97.6 F 05/19/16 15:44 Pulse 80 05/19/16 15:44 Resp 16 05/19/16 15:44 BP 82/60 05/19/16 15:44 Pulse Ox 95 05/19/16 15:44 GENERAL: * Alert and oriented, comfortable appearing. * Mental Status: Affect appropriate for circumstances HEENT: * Sclerae anicteric. No mucositis or thrush. * No other oral or pharyngeal lesions or erythema. Skin: * No rashes or petechiae. * No evidence of skin malignancy Lymph nodes: * No cervical, supraclavicular, axillary, or inguinal adenopathy. Lungs: * Clear to auscultation bilaterally. * Clear to percussion bilaterally. Cardiovascular: * Regular rate and rhythm. * No gallops, murmurs, or rubs. Abdomen: * Soft, nontender; * No organomegaly or masses palpable. Extremities: * Bilateral LE edema. No calf swelling or tenderness. * No joint deformity. Neurologic: * Alert, * normal gait; * no focal weakness or sensory abnormalities. Results: Laboratory Last Values WBC 13.5 K/mcL (4.3-11.1) H 05/19/16 05:14 RBC 4.63 M/mcL (4.19-5.50) 05/19/16 05:14 Hgb 12.4 g/dL (12.9-16.9) L 05/19/16 05:14 Hct 38.6 % (37.5-50.1) 05/19/16 05:14 MCV 83.4 fL (83.0-100.0) 05/19/16 05:14 MCH 26.8 pg (28.0-33.3) L 05/19/16 05:14 MCHC 32.1 g/dL (31.6-35.5) 05/19/16 05:14 RDW 18.1 % (11.5-14.5) H 05/19/16 05:14 Plt Count 252 K/mcL (140-400) 05/19/16 05:14 MPV 10.7 fL (9.4-12.4) 05/19/16 05:14 Immature Gran % 2.5 % (0-4) 05/19/16 05:14 Seg Neutrophils % 83.2 % 05/19/16 05:14 Lymphocytes % 3.9 % 05/19/16 05:14 Monocytes % 9.1 % 05/19/16 05:14 Eosinophils % 0.8 % 05/19/16 05:14 Basophils % 0.5 % 05/19/16 05:14 Neutrophils # 11.2 K/mcL (1.6-8.9) H 05/19/16 05:14 Lymphocytes # 0.5 K/mcL (0.6-4.6) L 05/19/16 05:14 Monocytes # 1.2 K/mcL (0.0-1.3) 05/19/16 05:14 Eosinophils # 0.1 K/mcL (0.0-0.6) 05/19/16 05:14 Basophils # 0.1 K/mcL (0.0-0.2) 05/19/16 05:14 PT 12.8 Seconds (9.4-12.1) H 05/18/16 14:18 INR 1.2 05/18/16 14:18 APTT 27.0 Seconds (26.0-36.0) 05/18/16 14:18 Sodium 136 mEq/L (136-145) 05/19/16 08:18 Potassium 5.4 mEq/L (3.5-4.5) H 05/19/16 08:18 Chloride 99 mEq/L (98-109) 05/19/16 08:18 Carbon Dioxide 25 mEq/L (19-29) 05/19/16 08:18 BUN 49 mg/dL (8-26) H 05/19/16 08:18 Creatinine 1.94 mg/dL (0.72-1.25) H 05/19/16 08:18 Est GFR ( Amer) 40 (> 60) L 05/19/16 08:18 Est GFR (Non-Af Amer) 33 (> 60) L 05/19/16 08:18 BUN/Creatinine Ratio 25 (6-26) 05/19/16 08:18 Glucose 78 mg/dL (70-99) 05/19/16 08:18 Calculated Osmolality 294 (280-300) 05/19/16 08:18 Lactic Acid 2.4 mmol/L (0.5-2.2) H 05/18/16 17:21 Calcium 8.7 mg/dL (8.6-10.8) 05/19/16 08:18 Phosphorus 4.9 mg/dL (2.3-4.7) H 05/18/16 14:18 Magnesium 2.5 mg/dL (1.6-2.6) 05/18/16 14:18 Total Bilirubin 1.1 mg/dL (0.2-1.2) 05/19/16 08:18 AST 45 Units/L (5-34) H 05/19/16 08:18 ALT 22 Units/L (0-55) 05/19/16 08:18 Alkaline Phosphatase 115 Units/L (38-126) 05/19/16 08:18 Troponin I 0.11 ng/mL (0-0.03) H* 05/18/16 14:18 B-Natriuretic Peptide 1094 pg/mL (0-100) H 05/18/16 14:18 Serum Total Protein 6.1 g/dL (6.0-8.3) 05/19/16 08:18 Albumin 2.2 g/dL (3.5-5.0) L 05/19/16 08:18 Globulin 3.9 g/dL (2.4-3.5) H 05/19/16 08:18 Albumin/Globulin Ratio 0.6 (1.1-2.2) L 05/19/16 08:18 Carcinoembryonic Ag 3.2 ng/mL (0-5.0) 05/19/16 08:18 Urine Color Yellow (Yellow) 05/18/16 23:10 Urine Clarity Clear (Clear) 05/18/16 23:10 Urine pH 5.5 pH Units (5.0-8.0) 05/18/16 23:10 Ur Specific [place] 1.017 (1.010-1.025) 05/18/16 23:10 Urine Protein Negative mg/dL (Neg-Trace) 05/18/16 23:10 Urine Glucose (UA) Normal mg/dL (Normal) 05/18/16 23:10 Urine Ketones Negative mg/dL (Negative) 05/18/16 23:10 Urine Blood Negative (Negative) 05/18/16 23:10 Urine Nitrite Negative (Negative) 05/18/16 23:10 Urine Bilirubin Negative (Negative) 05/18/16 23:10 Urine Urobilinogen Normal mg/dL (Normal) 05/18/16 23:10 Ur Leukocyte Esterase Trace (Negative) H 05/18/16 23:10 Urine Microscopic RBC 0-3 per hpf (0-3) 05/18/16 23:10 Urine Microscopic WBC 0-3 per hpf (0-3) 05/18/16 23:10 Ur Squamous Epith Cells Few per lpf (None-Few) 05/18/16 23:10 Urine Bacteria Test Not Performed 05/18/16 23:10 Hyaline Casts Test Not Performed 05/18/16 23:10 Ur Culture Indicated? YES (NO) A 05/18/16 23:10 Fluid Source ascites fluid 05/19/16 11:00 Fluid Volume 60 mL 05/19/16 11:00 Fluid Appearance Hazy (Clear) A 05/19/16 11:00 Fluid RBC TNP 05/19/16 11:00 Fld Tot Nucleated Cell TNP 05/19/16 11:00 Fluid Seg Neutrophil % 53.0 % 05/19/16 11:00 Fld Band Neutrophil % TNP 05/19/16 11:00 Fluid Lymphocytes % 22.0 % 05/19/16 11:00 Fluid Monocytes % 2.0 % 05/19/16 11:00 Fluid Eosinophils % 1.0 % 05/19/16 11:00 Fluid Basophils % TNP 05/19/16 11:00 Fluid Other Cells % 22.0 % 05/19/16 11:00 Peritoneal Tot Protein 3.1 g/dL (No Ref Range) 05/19/16 11:00 Peritoneal Albumin 1.4 g/dL (No Ref Range) 05/19/16 11:00 Peritoneal LDH 2583 Units/L (No Ref Range) 05/19/16 11:00 Peritoneal Glucose 7 mg/dL (No Ref Range) 05/19/16 11:00 Specimen Rejected Hemolyzed 05/19/16 07:37 Radiographic studies: I personally reviewed and interpreted patient's most recent imaging studies dated 03/09-05/18/16. I discussed the findings with the patient today. Chest X-Ray 05/18/16 14:04 IMPRESSION: Cardiomegaly with mild pulmonary edema, unchanged. Stable small right pleural effusion. Patchy bibasilar opacities are present, and could represent atelectasis or infiltrates, although they appear unchanged from prior exams. D/ / 05/18/2016 14:30:04 Ricky Capone MD / Araceli Ronquillo Interpreting Provider: Ricky Capone MD Abdomen/Pelvis CT 05/18/16 14:33 IMPRESSION: 1. Diffuse pulmonary metastatic disease partially imaged in the lung bases. This is fully characterized on the current chest CT. 2. Moderate-large amount of ascites and diffuse nodularity of the greater omentum concerning for carcinomatosis. 3. No other evidence of primary malignancy in the organs or bowel on the noncontrast CT. D/ / 05/18/2016 15:46:32 Carlton Degroot MD / doug Interpreting Provider: Carlton Degroot MD Chest CT 05/18/16 14:42 IMPRESSION: 1. Pulmonary and right pleural metastatic disease 2. Thickened interlobular septa bilaterally may be due to lymphangitic tumor, lymphatic obstruction, or interstitial edema 3. Mediastinal adenopathy 4. Small bilateral pleural effusions 5. Ascites, with infiltration of the omentum compatible with peritoneal carcinomatosis D/ / Neo Butterfield MD / Neo Butterfield MD Interpreting Provider: Neo Butterfield MD Paracentesis Ultrasound 05/19/16 06:37 IMPRESSION: Successful ultrasound guided paracentesis. D/ / Tucker Moran MD / Tucker Moran MD Interpreting Provider: Tucker Moran MD Impression/recommendations: Suspected metastatic cancer unknown primary site: I had a detailed discussion today with the patient and his daughter whom I discussed with over the phone after seeing the patient in the room. We reviewed diagnostic considerations for his current presentation including the basis for consideration of malignancy. Clearly, his advanced age, previous tobacco and aspect of the exposure all put him at high risk for malignancy including lung cancer and possibly mesothelioma. On the other hand, presence of his pulmonary nodules for almost 18 months with slow progression in addition to multiple negative fluid studies makes consideration for an indolent malignancy or non-malignant etiology reasonable consideration. Other considerations would include sarcoid versus asbestos-related lung abnormalities versus granulomatous disease or even an indolent lymphoproliferative disorder such as marginal zone lymphoma. Based on above, I have recommended that we await the results of pending fluid studies from paracentesis prior to definitive recommendations. If fluid studies inconclusive,will recommend lung biopsy. While he is less inclined towards heroic measures for management,he is willing to consider lung biopsy for further evaluation if needed. I think this is reasonable. Will recommend to continue ongoing supportive measures as you are doing. We'll follow the patient along side you during this hospitalization but please do not hesitate to call regarding interval oncologic questions as they arise. Thank you for your excellent ongoing care for allowing us to see him while in- house. This report was created using voice recognition software and may contain errors. It was signed but not edited to expedite communication. Past Med Surg Social Fam HX - Past Medical History Medical history: cardiomyopathy, CHF, hyperlipidemia, hypertension, other Psychiatric history: no psych history - Past Surgical History Surgical History: no surgical history, orthopedic, other, other (Valve replacement), pacemaker (May 2015) - Social History Smoking Status: Former smoker Smokeless Tobacco Status: No Alcohol use: none Drug use: none - Family History Father Son Living Status: Father Living Status: Hx Family Cardiac Disorders: No Hx Family Respiratory Disorders: No Hx Family Cancer: Yes Hx Family GI Disorders: No Hx Family Endocrine Disorder: No Hx Family Neuromuscular Disorders: No Hx Family Neurologic Disorders: No Hx Family HEENT Disorders: No Hx Family Autoimmune Disorders: No Mother Adopted: No Family Member Ethnicity: Non- Living Status: Hx Family Cardiac Disorders: No Hx Family Respiratory Disorders: No Hx Family Cancer: Yes (FATHER OF CANER) Hx Family GI Disorders: No Hx Family Endocrine Disorder: No Hx Family Neuromuscular Disorders: No Hx Family Neurologic Disorders: Yes Hx Family HEENT Disorders: No Hx Family Autoimmune Disorders: No Medications and Allergies Aspirin 81 mg PO DAILY #60 tab.chew 01/24/15 [Rx] Amiodarone [Cordarone] 200 mg PO DAILY 11/21/15 [History] Atorvastatin [Lipitor] 10 mg PO HS 11/21/15 [History] Tamsulosin [Flomax] 0.4 mg PO DAILY 11/21/15 [History] Gabapentin [Neurontin] 100 mg PO TID 02/22/16 [History] Carvedilol 3.125 mg PO BID 30 Days 02/26/16 [Rx] Potassium Chloride [K-Tab ER] 20 meq PO DAILY #14 tablet.er 02/26/16 [Rx] Furosemide [Lasix] 40 mg PO BID 05/18/16 [History] Allergies No Known Allergies Allergy (Verified 02/22/16 17:25) Oncology - Exam - Constitutional Vitals: Temp Pulse Resp BP Pulse Ox 97.6 F 80 16 82/60 95 05/19/16 15:44 05/19/16 15:44 05/19/16 15:44 05/19/16 15:44 05/19/16 15:44 Oncology - Results - Labs Labs: [facility] 05/19/16 08:18 Sodium 136 Potassium 5.4 H Chloride 99 Carbon Dioxide 25 BUN 49 H Creatinine 1.94 H Glucose 78 Calcium 8.7 Liver Function 05/19/16 Range/Units 08:18 Total Bilirubin 1.1 (0.2-1.2) mg/dL AST 45 H (5-34) Units/L ALT 22 (0-55) Units/L Alkaline Phosphatase 115 (38-126) Units/L Albumin 2.2 L (3.5-5.0) g/dL Consult Discharge Plan - Plan Referrals: Rex Rubi MD [Primary Care Provider] -
[2016-05-19 20:03] LABS: Calcium 8.3 mg/dL (8.6-10.8); Potassium 4.9 mEq/L (3.5-4.5)
[2016-05-20] MEDS: 0.9 % Sodium Chloride 1,000 ML IVC SCH (05:15)
[2016-05-20 05:28] LABS: Basophils # 0.1 K/mcL (0.0-0.2); Basophils % 0.7 %; Eosinophils # 0.2 K/mcL (0.0-0.6); Eosinophils % 1.5 %; Hematocrit 38.1 % (37.5-50.1); Hemoglobin 12.2 g/dL (12.9-16.9); Lymphocytes # 0.5 K/mcL (0.6-4.6); Lymphocytes % 4.7 %; Mean Corpuscular Hemoglobin 26.2 pg (28.0-33.3); Mean Corpuscular Volume 81.9 fL (83.0-100.0); Mean Platelet Volume 11.6 fL (9.4-12.4); Monocytes # 0.9 K/mcL (0.0-1.3); Monocytes % 8.8 %; Neutrophils # 8.1 K/mcL (1.6-8.9); Platelet Count 144 K/mcL (140-400); Red Blood Count 4.65 M/mcL (4.19-5.50); Segmented Neutrophils % 80.3 %
[2016-05-20 05:43] LABS: BUN/Creatinine Ratio 32 (6-26); Blood Urea Nitrogen 43 mg/dL (8-26); Calcium 8.2 mg/dL (8.6-10.8); Carbon Dioxide 24 mEq/L (19-29); Chloride 104 mEq/L (98-109); Creatine Kinase 49 Units/L (30-200); Glucose 73 mg/dL (70-99); Magnesium 2.2 mg/dL (1.6-2.6); Osmolality,Calculated 291 (280-300); Phosphorous 3.6 mg/dL (2.3-4.7); Potassium 4.7 mEq/L (3.5-4.5); Sodium 136 mEq/L (136-145); Uric Acid 8.5 mg/dL (3.5-7.2); eGFR For African Americans > 60 (> 60); eGFR For Non-African Americans 51 (> 60)
[2016-05-20 05:58] LABS: Platelet Estimate Normal (Normal); Reactive Lymphocytes Present (Not Present); Smudge Cells Present (Not Present)
--- NOTE | 2016-05-20 07:54 | ECHO - Doppler Report ---
Echocardiogram Name: Juan Retana Date of Study: 05/19/2016 Date: 1930 Ht: 68.0 in Medical Record#: [id number] Age: 86 Wt: 191.0 lb Gender: Male BSA: 2 Order #: [id number] Location: [facility] Room #: [id number] Reading Physician: Emanuel Kelley MD, [facility] Demonstration Agent: ZULEMA Siddiqi, RVS Ordering Physician: Tanmay Faustin DO Primary Physician: Indications: Congestive heart failure Impressions: Moderate LV systolic dysfunction, LVEF 35-40%. There is global hypokinesis with regional variations. There is atypical septal motion consistent with ventricular pacing. Severe concentric left ventricular hypertrophy. Indeterminate diastolic function. Normal right ventricular size with mild-moderate RV hypokinesis. A device lead was visualized in the right atrium and right ventricle. Moderately dilated left atrium. Moderately dilated right atrium. Bioprosthetic aortic valve is not well visualized. The valve is functioning normally. No evidence of stenosis or regurgitation. Mild mitral regurgitation. Mild-moderate tricuspid regurgitation. Mild pulmonary hypertension. Estimated RVSP = 38 mmHg. Left Ventricular Wall Motion: Rest Echo Findings The apex, apical inferior, mid inferior, basal inferior, apical anterior, mid anterior, basal anterior, apical septal, mid inferior septal, basal inferior septal, apical lateral, mid anterior lateral, basal anterior lateral, mid anterior septal, mid inferior lateral, basal anterior septal and basal inferior lateral aranda were hypokinetic. Findings: Study Quality * Technically adequate exam. ECG Findings * V-paced rhythm. Left Ventricle * Moderate LV systolic dysfunction, LVEF 35-40%. There is global hypokinesis with regional variations. There is atypical septal motion consistent with ventricular pacing. * Severe concentric left ventricular hypertrophy. * Indeterminate diastolic function. Right Ventricle * Normal right ventricular size with mild-moderate RV hypokinesis. Device lead * A device lead was visualized in the right atrium and right ventricle. Left Atrium * Moderately dilated left atrium. Right Atrium * Moderately dilated right atrium. Aorta * Normally sized aortic root. Pericardium * There is no pericardial effusion present. IVC * The IVC is dilated with decreased inspiratory collapse. Aortic Valve * Bioprosthetic aortic valve is not well visualized. The valve is functioning normally. No evidence of stenosis or regurgitation. Mitral Valve * Mild mitral annular calcification * No mitral stenosis. * Mild mitral regurgitation. Tricuspid Valve * Normal tricuspid valve structure. * No tricuspid stenosis. * Mild-moderate tricuspid regurgitation. * Mild pulmonary hypertension. Estimated RVSP = 38 mmHg. Pulmonic Valve * Pulmonic valve is not well visualized. * No pulmonic stenosis. * No pulmonic regurgitation. History Hypertension Hypercholesteremia Congestive Heart Failure Pacer/ICD Implant Valvular Disease Valve Replacement 02/12/16 a Previous Echo was performed. Measurements: BP: 82/ 60 2D Normal Values RVIDd: 3.60 cm IVSd: 1.80 cm 0.6 - 1.0 cm LVIDd: 4.20 cm 3.7 - 5.6 cm LVPWd: 1.80 cm 0.6 - 1.1 cm LVIDs: 3.50 cm 1.5 - 3.6 cm AO: 2.20 cm < 4.0 cm %FS: 16.70 cm >25 % LVOT Diam: 1.90 cm LA volume: 79 Aortic Valve Peak Tano:1.70 m/sec Peak Grad:11.00 mmHg Mean Grad:5.00 mmHg Tricuspid Valve TV Regurg Peak Grad: 23.00mmHg TV Regurg Peak Tano: 2.42m/sec Updated by Emanuel Kelley MD, [facility] on 05/20/2016 7:47:57 AM electronically signed on 05/20/2016 7:49:06 AM with status of Final Wall Motion [place]: 1=Normal, 2=Hypokinesis, 3=Akinesis, 4=Dyskinesis, 5=Aneurysmal, 6=Hyperkinetic, X=Not Visualized (Blank)=Missing
--- NOTE | 2016-05-20 08:02 | Cardiology Progress Note ---
Date of Encounter: 05/20/16 Time of Encounter: 09:34 Assessment and Plan (1) Systolic CHF, acute on chronic Current Visit: No Status: Acute Echo: 05/19/16 Moderate LV systolic dysfunction LVEF 35-40%. There is global hypokinesis with regional variations. There is atypical septal motion consistent with ventricular pacing. Severe concentric left ventricular hypertophy. Indeterminate diastolic function. Normal right ventricular size with mild-moderate RV hypokinesis. A device lead was visulaized in the right atrium and right ventricle. Moderately dilated left atrium. Moderately dilated right atrium. Bioprosthetic aortic valve is not well visualized. The valve is functioning normally. No evidence of stenosis or regurgitation. Mild mitral regurgitation. Mild-moderate tricuspid regurgitation. Mild pulmonary hypertension. Estimated RVSP 38 CXR fairly unchanged from previous. Patient had 4.5L removed by paracentesis yesterday -> cytology pending. LVEF 40 on 02/12/16. Dyspnea like attributable to the patient's ascites from possible malignancy -> oncology following. Recommend no further cardiac workup. Continue previous CV meds. Cardiology to sign off. (2) Elevated troponin Current Visit: No Status: Acute Troponin of 0.11 Similar to his previous levels dating back to 2014. Multifactorial: CHF, ELÍAS. (3) Aortic stenosis Current Visit: No Status: Chronic S/P TAVR 05/06 Qualifiers: Cardiac valve disease etiology: nonrheumatic Qualified Code(s): I35.0 - Nonrheumatic aortic (valve) stenosis (4) Coronary artery disease Current Visit: No Status: Chronic LHC: 02/11/15 Left main coronary artery angiographically free of disease. LAD 40 % calcified stenosis in the proximal LAD. 30% calcifie stenosis in the Mid LAD. 25% stenosis in the Mid Circumflex. 30% stenosis in the Distal Circumflex. 30% stenosis in the ramus. RCA is angiographically free of disease. Right PDA is angiographically free of disease. Right coronary artery is small in size. Qualifiers: Coronary Disease-Associated Artery/Lesion type: [place] artery [place] vs. transplanted heart: [place] heart Associated angina: without angina Qualified Code(s): I25.10 - Atherosclerotic heart disease of [place] coronary artery without angina pectoris Discussion w patient/family: The assessment and plan as outlined above was discussed with the patient and/or family members who expressed understanding and agreement. All questions were answered. Thank you for involving us in the care of your patient. Please call with any questions. Subjective Principal diagnosis: Dyspnea, Ascites, Carcinomatosis Interval history: Patient evaluated by oncology, palliative care and IR. 4.5L removed yesterday - cytology pending. Oncology recommending to await fluid analysis prior to possible lung biopsy. Patient reports improvement of symptoms after paracentesis. Reviewed his echo with the patient. No other complaints or questions. Objective Vital Signs, Last 4 Hours Temp Pulse Resp BP Pulse Ox 05/20/16 07:00 97.0 F L 69 15 105/72 99 General: Conversant, No Apparent Distress HEENT: Atraumatic, Normocephaly, Mucus Membranes Moist Neck: No JVD Cardiac: Reg Rate and Rhythm, Normal S1 and S2, Other (3/6 systolic murmur) Lungs: Normal Breath Sounds, No Wheeze, Rales, Rhonchi Neuro: Alert and responsive, No focal deficits noted Abdomen: Soft, Non-Tender Skin: No rashes noted on visualized skin Musculoskeletal: No Chest Wall Tenderness Extremities: No Clubbing, No Cyanosis, Normal Pulses, Other (1+ BLE edema) Results 05/20/16 04:46 05/20/16 04:46 Lab Results 05/19/16 05/19/16 05/20/16 08:18 19:29 04:46 WBC 10.1 Hgb 12.2 L Hct 38.1 Plt Count 144 Sodium 136 134 L Potassium 5.4 H 4.9 H Chloride 99 102 Carbon Dioxide 25 26 BUN 49 H 46 H Creatinine 1.94 H 1.56 H Glucose 78 101 H Calcium 8.7 8.3 L Magnesium Total Bilirubin 1.1 AST 45 H ALT 22 Alkaline Phosphatase 115 05/20/16 04:46 WBC Hgb Hct Plt Count Sodium 136 Potassium 4.7 H Chloride 104 Carbon Dioxide 24 BUN 43 H Creatinine 1.33 H Glucose 73 Calcium 8.2 L Magnesium 2.2 Total Bilirubin AST ALT Alkaline Phosphatase - Imaging and Cardiology Echo: report reviewed Consult Discharge Plan - Plan Referrals: Rex Rubi MD [Primary Care Provider] - 05/28/16 10:00 am
[2016-05-20] MEDS: Folic Acid 1 MG TABLET PO SCH (08:16)
[2016-05-20] MEDS: Cyanocobalamin (B-12) 1,000 MCG TABLET PO SCH (08:16)
[2016-05-20] MEDS: *HR* Heparin 5,000 UNIT/ML VIAL SQ SCH ×3 (08:16→23:54)
[2016-05-20] MEDS: Thiamine (B-1) 100 MG TABLET PO SCH (08:16)
[2016-05-20] MEDS: Gabapentin 100 MG CAPSULE PO SCH ×3 (08:16→20:19)
[2016-05-20] MEDS: Aspirin 81 MG TAB.CHEW PO SCH (08:16)
--- NOTE | 2016-05-20 08:31 | Nephrology Progress Note ---
Date of Encounter: 05/20/16 Time of Encounter: 09:30 - Assessment and Plan (1) Acute kidney injury Current Visit: Yes Status: Acute Non-oliguric ELÍAS, improving. 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 It's not clear why he was taking a very unusual formulation of K+ as an outpt, but I would continue to hold it until his renal function further improves. Follow a renal protective strategy: dose any renally cleared Rx by GFR, avoid nephrotoxin exposures, avoid excessive hypotension (to help facilitate adequate renal perfusion). Daily weights and strict I/Os are necessary. (2) Carcinomatosis Current Visit: Yes Status: Acute (3) Congestive heart failure (CHF) Current Visit: Yes Status: Acute I would stop the IVF, which appears to have already been done during my rounds this AM. Will montior his edema/volume status. Qualifiers: Congestive heart failure type: systolic Congestive heart failure chronicity : acute on chronic Qualified Code(s): I50.23 - Acute on chronic systolic ( congestive) heart failure (4) Hyperkalemia Current Visit: Yes Status: Acute Resolving. Low K+ diet. Subjective Principal diagnosis: Dyspnea, Ascites, Carcinomatosis Interval history: He was see/examined earlier today. He did not affirm uremic complaints (i.e., no N/V/D or lost appetite or confusion). He asked me about the cancer work up, and I mentioned that the work-up is still in process and deferred to Heme/Onc. Objective - Vital Signs Vital signs: Vital Signs Temp Pulse Resp BP Pulse Ox 05/20/16 08:24 98 05/20/16 07:00 97.0 F L 69 15 105/72 99 05/20/16 03:00 97.9 F 91 16 93/69 05/20/16 02:11 94/60 05/19/16 23:48 97.7 F 69 15 05/19/16 19:00 97.3 F L 69 17 93/68 95 05/19/16 15:44 97.6 F 80 16 82/60 95 05/19/16 11:27 97.5 F L 69 16 96/67 95 Intake and Output 05/19/16 05/20/16 05/20/16 23:59 07:59 15:59 Intake Total 0 / 0 1000 / 1000 Output Total 200 / 200 175 / 175 Balance -200 / -200 825 / 825 Intake: IV Fluids 1000 / 1000 0.9 % Sodium Chloride 1, 1000 / 1000 000 ML @ 80 mls/hr IVC . [id number] [facility], [facility] Rx#: [id number] Oral 0 / 0 0 / 0 Output: Urine 200 / 200 175 / 175 Other: Weight 83.1 kg Patient Weight 05/20/16 23:59 Weight 83.1 kg - General Appearance General appearance: Present: well-developed, well-nourished, frail EENT: Present: ATNC, PERRL, mucous membranes moist Neck: Present: supple Respiratory: Present: clear Cardiology: Present: edema (1-2+ pitting, pretibial edema with shiny skin b/l), normal S1, normal S2 Gastrointestinal: Present: normoactive bowel sounds, no guarding, distended ( but improved compared to prior the paracentesis.) Integumentary: Present: no rash, warm and dry Neurologic: Present: no focal deficit, no asterixis, alert and oriented x3 Musculoskeletal: Present: no deformities, no erythema, no cyanosis Psychiatric: Present: mood/affect appropriate, cooperative - Lab 05/20/16 04:46 05/20/16 04:46 Most recent lab results Calcium 8.2 mg/dL (8.6-10.8) L 05/20/16 04:46 Phosphorus 3.6 mg/dL (2.3-4.7) 05/20/16 04:46 Magnesium 2.2 mg/dL (1.6-2.6) 05/20/16 04:46 Consult Discharge Plan - Plan Referrals: Rex Rubi MD [Primary Care Provider] - 05/28/16 10:00 am
--- NOTE | 2016-05-20 08:37 | Internal Med Progress Note ---
<Amadou Cummins - Last Filed: 05/20/16 10:59> Date of Encounter: 05/20/16 Time of Encounter: 08:34 - Assessment and plan (1) Systolic CHF, acute on chronic Current Visit: No Status: Acute Assessment and plan: Echo 05/19 revealed EF of 35-40%, same as previous echo on 02/11 Currently on Lasix 40 IV BID, but has borderline blood pressures and morning dose has been held He dose take Coreg at home, but dose also held due to borderline hypotension Cardiology has signed off (2) Acute kidney injury Current Visit: Yes Status: Acute Assessment and plan: Nephrology consulted, appreciate recommendations Likely pre-renal in etiology given patient's fluid overload status Cr has been improving, down to 1.33 from 1.56, baseline around 1.0 Serologies pending (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 Assessment and plan: Oncology has been consulted, appreciate recommendations Patient is unsure how aggressive he wants to be in diagnosis and treatment of suspected malignancy Family meeting planned for 12 PM today (4) Ascites Current Visit: Yes Status: Acute Assessment and plan: Likely secondary to carcinomatosis Fluid analysis does not indicate SBP and SAAG < 1.1 Patient clinically better s/p paracentesis with removal of 4.5 L on 05/19 Cytology pending Qualifiers: 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 He states he is breathing well this morning but his abdomen feels no different despite the paracentesis yesterday which removed 4.5 L. He has no issues with his meals, no nausea, vomiting, diarrhea, fevers, or chills. He is still unsure how aggressive he wants to manage his suspected malignancy and would like to talk to his family and also palliative/oncology more before he makes a decision. - Constitutional Vitals: Temp Pulse Resp BP Pulse Ox 97.0 F L 69 15 105/72 98 05/20/16 07:00 05/20/16 07:00 05/20/16 07:00 05/20/16 07:00 05/20/16 08:24 General appearance: Present: cooperative, pleasant, no acute distress, answers questions appropriately - Head Head exam: Present: atraumatic, normocephalic - Eye Eye exam: Present: PERRL, conjuntiva pink, sclera anicteric - Neck Neck exam general surgery: Present: supple, trachea midline. Absent: lymphadenopathy - Respiratory Respiratory exam: Present: CTAB. Absent: accessory muscle use, rales, rhonchi, wheezes - Cardiovascular Cardiovascular exam: Present: RRR, +S1, +S2. Absent: diastolic murmur, gallop, rubs, systolic murmur - GI/Abdominal GI/Abdominal exam: Present: distended, normal bowel sounds, soft, no peritoneal signs. Absent: tenderness - Extremities Exam Extremities exam: Present: pedal edema (2-3+ pitting edema BL LE), warm, radial pulses palpable and symetrical. Absent: calf tenderness, cyanotic - Neurological Exam Neurological exam: Present: alert, no focal deficits. Absent: facial droop, speech deficit - Skin Skin exam: Present: dry, intact Internal Medicine: Result - Labs CBC & Chem 7: 05/20/16 04:46 05/20/16 04:46 Labs: Short CBC 05/20/16 Range/Units 04:46 WBC 10.1 (4.3-11.1) K/mcL Hgb 12.2 L (12.9-16.9) g/dL Hct 38.1 (37.5-50.1) % Plt Count 144 (140-400) K/mcL Neutrophils # 8.1 (1.6-8.9) K/mcL BMP 05/19/16 05/19/16 05/20/16 08:18 19:29 04:46 Sodium 136 134 L 136 Potassium 5.4 H 4.9 H 4.7 H Chloride 99 102 104 Carbon Dioxide 25 26 24 BUN 49 H 46 H 43 H Creatinine 1.94 H 1.56 H 1.33 H Glucose 78 101 H 73 Calcium 8.7 8.3 L 8.2 L Liver Function 05/19/16 Range/Units 08:18 Total Bilirubin 1.1 (0.2-1.2) mg/dL AST 45 H (5-34) Units/L ALT 22 (0-55) Units/L Alkaline Phosphatase 115 (38-126) Units/L Albumin 2.2 L (3.5-5.0) g/dL - ABG Interpretation ABG results: PT/INR, D-dimer PT 12.8 Seconds (9.4-12.1) H 05/18/16 14:18 Consult Discharge Plan - Plan Referrals: Rex Rubi MD [Primary Care Provider] - 05/28/16 10:00 am <Major Cadet - Last Filed: 05/20/16 17:56> - Assessment and plan (1) Anasarca Current Visit: Yes Status: Acute (2) Systolic CHF, acute on chronic Current Visit: No Status: Acute (3) Coronary artery disease Current Visit: No Status: Chronic Qualifiers: Coronary Disease-Associated Artery/Lesion type: hoopa artery [place] vs. transplanted heart: hoopa heart Associated angina: without angina Qualified Code(s): I25.10 - Atherosclerotic heart disease of hoopa coronary artery without angina pectoris - Constitutional Vitals: Temp Pulse Resp BP Pulse Ox 97.3 F L 69 15 98/60 98 05/20/16 15:00 05/20/16 15:00 05/20/16 15:00 05/20/16 15:00 05/20/16 15:00 Internal Medicine: Result - Labs CBC & Chem 7: 05/20/16 04:46 05/20/16 04:46 Labs: Short CBC 05/20/16 Range/Units 04:46 WBC 10.1 (4.3-11.1) K/mcL Hgb 12.2 L (12.9-16.9) g/dL Hct 38.1 (37.5-50.1) % Plt Count 144 (140-400) K/mcL Neutrophils # 8.1 (1.6-8.9) K/mcL BMP 05/19/16 05/20/16 19:29 04:46 Sodium 134 L 136 Potassium 4.9 H 4.7 H Chloride 102 104 Carbon Dioxide 26 24 BUN 46 H 43 H Creatinine 1.56 H 1.33 H Glucose 101 H 73 Calcium 8.3 L 8.2 L - ABG Interpretation ABG results: PT/INR, D-dimer PT 12.8 Seconds (9.4-12.1) H 05/18/16 14:18 - Attending Attestation I examined this patient and my medical decision-making was reviewed with the Resident Physician. I agree with the documented findings, disposition and treatment plan as described except to the extent set forth below. Mr Retana is currently admitted for acute respiratory distress due to massive ascites and fluid overload. He remains moderate to high risk due to potential for worsening respiratory and cardiac status. Mr. Retana is resting in bed. [employer] input is appreciated. He is awaiting final path report to make any further decisions. Denies worsening dyspnea or CP. No abd pain. Bowels OK. Exam Alert. Comfortable Heart reg - very distant Lungs diminished Abd somewhat distended. Mild fluid wave noted Edema present. Current labs reviewed I/P 1. Respiratory distress due to anasarca and massive ascites 2. Anasarca 3. Massive ascites s/p 4600ml removal 4. Carcinomatosis Further diagnoses and plan as above. Prognosis guarded
[2016-05-20] MEDS: Furosemide 40 MG/4 ML VIAL IVP SCH ×2 (10:17→20:16)
--- NOTE | 2016-05-20 10:22 | Palliative Progress Note ---
Date of Encounter: 05/20/16 Time of Encounter: 10:00 - Assessment and plan (1) Dyspnea Current Visit: Yes Status: Acute Assessment and plan: Mr. Retana had a paracentesis yesterday with 4.6L of fluid removed. He reports shortness of breath with exertion and overall generalized weakness. Continue to follow. Qualifiers: Dyspnea type: dyspnea on exertion Qualified Code(s): R06.09 - Other forms of dyspnea (2) Ascites Current Visit: Yes Status: Acute Assessment and plan: Mr. Retana had a paracentesis yesterday with 4.6L of fluid removed. Fluid was sent for pathology. He reports some improvement in breathing since the paracentesis. 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 Appreciate assistance. (4) Congestive heart failure (CHF) Current Visit: Yes Status: Acute Assessment and plan: Cardiology following. Qualifiers: Congestive heart failure type: systolic Congestive heart failure chronicity : acute on chronic Qualified Code(s): I50.23 - Acute on chronic systolic ( congestive) heart failure (5) Goals of care, counseling/discussion Current Visit: Yes Status: Acute Assessment and plan: Family meeting yesterday to discuss goals of care. Oncology consulted and spoke with patient and his daughter last evening. Notes appreciated. Will follow up with advanced directives once family has arrived. Update: Met with patient, spouse Angelia, daughter Tia, son Richi regarding advanced directives. Tia believes that they were completed while at [facility]. She plans to go there tomorrow to check the records. The plan is to await pathology results and speak with oncology regarding future plans. Mr. Retana is aware that awaiting pathology results is not an indication to stay in the hospital, and the results may not be available until next week. He will be discharged to [facility] when medically stable and follow up with oncology as an outpatient. - Time Spent With Patient Total time spent is greater than 50% in coordination of care (as documented) at patient's floor/unit and/or counseling patient: - Subjective Interval history: Mr. Retana is lying in bed. He denies feelings of pain, nausea/vomiting, abdominal pressure. He does "feel full" and has an altered appetite due to a poor sense of taste. Mr. Retana states he ate most of his breakfast, but it was not as satisfying. He continue to reports edema to his lower extremities. Mr. Retana states that he feels weak and it takes 2 assists to get him out of bed. - Constitutional Vitals: Abnormal lab results Hgb 12.2 g/dL (12.9-16.9) L 05/20/16 04:46 MCV 81.9 fL (83.0-100.0) L 05/20/16 04:46 MCH 26.2 pg (28.0-33.3) L 05/20/16 04:46 RDW 18.0 % (11.5-14.5) H 05/20/16 04:46 Lymphocytes # 0.5 K/mcL (0.6-4.6) L 05/20/16 04:46 Reactive Lymphocytes Present (Not Present) A 05/20/16 04:46 Smudge Cells Present (Not Present) A 05/20/16 04:46 PT 12.8 Seconds (9.4-12.1) H 05/18/16 14:18 Potassium 4.7 mEq/L (3.5-4.5) H 05/20/16 04:46 BUN 43 mg/dL (8-26) H 05/20/16 04:46 Creatinine 1.33 mg/dL (0.72-1.25) H 05/20/16 04:46 Est GFR (Non-Af Amer) 51 (> 60) L 05/20/16 04:46 BUN/Creatinine Ratio 32 (6-26) H 05/20/16 04:46 Lactic Acid 2.4 mmol/L (0.5-2.2) H 05/18/16 17:21 Uric Acid 8.5 mg/dL (3.5-7.2) H 05/20/16 04:46 Calcium 8.2 mg/dL (8.6-10.8) L 05/20/16 04:46 AST 45 Units/L (5-34) H 05/19/16 08:18 Troponin I 0.11 ng/mL (0-0.03) H* 05/18/16 14:18 B-Natriuretic Peptide 1094 pg/mL (0-100) H 05/18/16 14:18 Total Protein (PEP) 4.4 g/dL (6.0-8.3) L 05/20/16 04:46 Albumin 2.2 g/dL (3.5-5.0) L 05/19/16 08:18 Globulin 3.9 g/dL (2.4-3.5) H 05/19/16 08:18 Albumin/Globulin Ratio 0.6 (1.1-2.2) L 05/19/16 08:18 Ur Leukocyte Esterase Trace (Negative) H 05/18/16 23:10 Ur Culture Indicated? YES (NO) A 05/18/16 23:10 Fluid Appearance Hazy (Clear) A 05/19/16 11:00 General appearance: Present: cooperative, no acute distress Exam: 86 year old male appearing stated age. He is cooperative, smiling and interactive. He questions "where we are" with his work-up and treatment plan. Appropriate conversation. - Eye Eye exam: Present: EOMI, PERRL - ENT ENT exam: Present: mucous membranes moist - Respiratory Respiratory exam: Present: decreased breath sounds. Absent: accessory muscle use, respiratory distress - Cardiovascular Cardiovascular exam: Present: RRR - GI/Abdominal GI/Abdominal exam: Present: normal bowel sounds, soft. Absent: tenderness - Extremities Exam Extremities exam: Present: pedal edema - Expanded Lower Extremity Exam Lower leg exam: Present: swelling - Neurological Exam Neurological exam: Present: alert, oriented X3, no focal deficits, strengths equal and symetr throughout - Psychiatric Psychiatric exam: Present: normal affect, normal mood. Absent: agitated, anxious - Skin Skin exam: Present: dry, warm Palliative Quality Palliative Quality: Screen for Code Status: Yes, Screen for Goals of Care: Yes, Screen for Pain: Yes, If Pain Regimen Started, Initiate Bowel Regimen: No, Screen for Nausea/Vomitting: Yes - Labs CBC & Chem 7: 05/20/16 04:46 05/20/16 04:46 Labs: Laboratory Results - last 24 hr 05/19/16 05/19/16 05/19/16 08:18 11:00 11:00 WBC RBC Hgb Hct MCV MCH MCHC RDW Plt Count MPV Immature Gran % Seg Neutrophils % Lymphocytes % Monocytes % Eosinophils % Basophils % Neutrophils # Lymphocytes # Monocytes # Eosinophils # Basophils # Reactive Lymphocytes Smudge Cells Platelet Estimate Sodium 136 Potassium 5.4 H Chloride 99 Carbon Dioxide 25 BUN 49 H Creatinine 1.94 H Est GFR ( Amer) 40 L Est GFR (Non-Af Amer) 33 L BUN/Creatinine Ratio 25 Glucose 78 Calculated Osmolality 294 Uric Acid Calcium 8.7 Phosphorus Magnesium Total Bilirubin 1.1 AST 45 H ALT 22 Alkaline Phosphatase 115 Creatine Kinase Serum Total Protein 6.1 Total Protein (PEP) Albumin 2.2 L Globulin 3.9 H Albumin/Globulin Ratio 0.6 L Carcinoembryonic Ag 3.2 Fluid Source ascites fluid Fluid Volume 60 Fluid Appearance Hazy A Fluid RBC TNP Fld Tot Nucleated Cell TNP Fluid Seg Neutrophil % 53.0 Fld Band Neutrophil % TNP Fluid Lymphocytes % 22.0 Fluid Monocytes % 2.0 Fluid Eosinophils % 1.0 Fluid Basophils % TNP Fluid Other Cells % 22.0 Peritoneal Tot Protein 3.1 Peritoneal Albumin 1.4 Peritoneal LDH 2583 Peritoneal Glucose 7 05/19/16 05/20/16 05/20/16 19:29 04:46 04:46 WBC 10.1 RBC 4.65 Hgb 12.2 L Hct 38.1 MCV 81.9 L MCH 26.2 L MCHC 32.0 RDW 18.0 H Plt Count 144 MPV 11.6 Immature Gran % 4.0 Seg Neutrophils % 80.3 Lymphocytes % 4.7 Monocytes % 8.8 Eosinophils % 1.5 Basophils % 0.7 Neutrophils # 8.1 Lymphocytes # 0.5 L Monocytes # 0.9 Eosinophils # 0.2 Basophils # 0.1 Reactive Lymphocytes Present A Smudge Cells Present A Platelet Estimate Normal Sodium 134 L 136 Potassium 4.9 H 4.7 H Chloride 102 104 Carbon Dioxide 26 24 BUN 46 H 43 H Creatinine 1.56 H 1.33 H Est GFR ( Amer) 52 L > 60 Est GFR (Non-Af Amer) 43 L 51 L BUN/Creatinine Ratio 29 H 32 H Glucose 101 H 73 Calculated Osmolality 290 291 Uric Acid 8.5 H Calcium 8.3 L 8.2 L Phosphorus 3.6 Magnesium 2.2 Total Bilirubin AST ALT Alkaline Phosphatase Creatine Kinase 49 Serum Total Protein Total Protein (PEP) Albumin Globulin Albumin/Globulin Ratio Carcinoembryonic Ag Fluid Source Fluid Volume Fluid Appearance Fluid RBC Fld Tot Nucleated Cell Fluid Seg Neutrophil % Fld Band Neutrophil % Fluid Lymphocytes % Fluid Monocytes % Fluid Eosinophils % Fluid Basophils % Fluid Other Cells % Peritoneal Tot Protein Peritoneal Albumin Peritoneal LDH Peritoneal Glucose 05/20/16 04:46 WBC RBC Hgb Hct MCV MCH MCHC RDW Plt Count MPV Immature Gran % Seg Neutrophils % Lymphocytes % Monocytes % Eosinophils % Basophils % Neutrophils # Lymphocytes # Monocytes # Eosinophils # Basophils # Reactive Lymphocytes Smudge Cells Platelet Estimate Sodium Potassium Chloride Carbon Dioxide BUN Creatinine Est GFR ( Amer) Est GFR (Non-Af Amer) BUN/Creatinine Ratio Glucose Calculated Osmolality Uric Acid Calcium Phosphorus Magnesium Total Bilirubin AST ALT Alkaline Phosphatase Creatine Kinase Serum Total Protein Total Protein (PEP) 4.4 L Albumin Globulin Albumin/Globulin Ratio Carcinoembryonic Ag Fluid Source Fluid Volume Fluid Appearance Fluid RBC Fld Tot Nucleated Cell Fluid Seg Neutrophil % Fld Band Neutrophil % Fluid Lymphocytes % Fluid Monocytes % Fluid Eosinophils % Fluid Basophils % Fluid Other Cells % Peritoneal Tot Protein Peritoneal Albumin Peritoneal LDH Peritoneal Glucose - ABG Interpretation ABG results: PT/INR, D-dimer PT 12.8 Seconds (9.4-12.1) H 05/18/16 14:18 Consult Discharge Plan - Plan Referrals: Rex Rubi MD [Primary Care Provider] - 05/28/16 10:00 am
[2016-05-20] MEDS: *HR* Amiodarone 200 MG TABLET PO SCH (10:37)
[2016-05-20 13:20] LABS: Alpha 2 Globulin (PEP) 0.8 g/dL (0.5-1.1); Beta Globulin (PEP) 0.5 g/dL (0.6-1.1)
[2016-05-21 05:08] LABS: Basophils # 0.1 K/mcL (0.0-0.2); Basophils % 0.8 %; Eosinophils # 0.2 K/mcL (0.0-0.6); Hematocrit 37.5 % (37.5-50.1); Hemoglobin 12.2 g/dL (12.9-16.9); Lymphocytes # 0.5 K/mcL (0.6-4.6); Lymphocytes % 4.6 %; Mean Corpuscular HGB Conc 32.5 g/dL (31.6-35.5); Mean Corpuscular Hemoglobin 26.9 pg (28.0-33.3); Mean Corpuscular Volume 82.8 fL (83.0-100.0); Mean Platelet Volume 11.4 fL (9.4-12.4); Monocytes % 9.2 %; Neutrophils # 8.7 K/mcL (1.6-8.9); Nucleated Red Blood Cells 0.5 /100 WBC (0); Platelet Count 235 K/mcL (140-400); Red Blood Count 4.53 M/mcL (4.19-5.50); Red Cell Distribution Width 18.3 % (11.5-14.5); Segmented Neutrophils % 79.4 %
[2016-05-21 05:24] LABS: BUN/Creatinine Ratio 31 (6-26); Blood Urea Nitrogen 36 mg/dL (8-26); Calcium 8.2 mg/dL (8.6-10.8); Carbon Dioxide 28 mEq/L (19-29); Chloride 103 mEq/L (98-109); Glucose 75 mg/dL (70-99); Osmolality,Calculated 291 (280-300); Potassium 4.6 mEq/L (3.5-4.5); Sodium 137 mEq/L (136-145); eGFR For African Americans > 60 (> 60); eGFR For Non-African Americans 60 (> 60)
[2016-05-21] MEDS: Cyanocobalamin (B-12) 1,000 MCG TABLET PO SCH (08:16)
[2016-05-21] MEDS: *HR* Amiodarone 200 MG TABLET PO SCH (08:17)
[2016-05-21] MEDS: Thiamine (B-1) 100 MG TABLET PO SCH (08:17)
[2016-05-21] MEDS: Folic Acid 1 MG TABLET PO SCH (08:17)
[2016-05-21] MEDS: *HR* Heparin 5,000 UNIT/ML VIAL SQ SCH ×3 (08:17→23:43)
[2016-05-21] MEDS: Gabapentin 100 MG CAPSULE PO SCH ×3 (08:17→22:24)
[2016-05-21] MEDS: Aspirin 81 MG TAB.CHEW PO SCH (08:17)
[2016-05-21] MEDS: Furosemide 40 MG/4 ML VIAL IVP SCH ×2 (08:18→22:25)
--- NOTE | 2016-05-21 09:26 | Internal Med Progress Note ---
<Amadou Cummins - Last Filed: 05/21/16 13:43> Date of Encounter: 05/21/16 Time of Encounter: 09:24 - Assessment and plan (1) Systolic CHF, acute on chronic Current Visit: No Status: Acute Assessment and plan: Echo 05/19 revealed EF of 35-40%, same as previous echo on 02/11 Currently on Lasix 40 IV BID, but some doses have been held due to borderline blood pressures He dose take Coreg at home, but dose also held due to borderline hypotension Will discharge to rehab possibly over the weekend, likely [facility] (2) Acute kidney injury Current Visit: Yes Status: Acute Assessment and plan: Nephrology consulted, appreciate recommendations Likely pre-renal in etiology given patient's fluid overload status Cr has been improving, down to 1.16 from 1.33, baseline around 1.0 Serologies pending (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 Assessment and plan: Oncology has been consulted, appreciate recommendations Patient is unsure how aggressive he wants to be in diagnosis and treatment of suspected malignancy (4) Ascites Current Visit: Yes Status: Acute Assessment and plan: Likely secondary to carcinomatosis Fluid analysis does not indicate SBP and SAAG < 1.1 Patient clinically better s/p paracentesis with removal of 4.5 L on 05/19 Cytology pending Qualifiers: Ascites type: malignant Qualified Code(s): R18.0 - Malignant ascites (5) Goals of care, counseling/discussion Current Visit: Yes Status: Acute Assessment and plan: Palliative consulted, appreciate recommendations (6) DVT prophylaxis Current Visit: Yes Status: Acute Assessment and plan: Heparin 5000 units TID - Subjective Interval history: Pt seen and examined. He states he is breathing fine this morning and has no issues with pain. His belly is somewhat swollen but better since the paracentesis. He is still unsure of what his plans are and they are awaiting cytology results. - Constitutional Vitals: Temp Pulse Resp BP Pulse Ox 98.3 F 69 15 101/68 94 L 05/21/16 07:00 05/21/16 07:00 05/21/16 07:00 05/21/16 07:00 05/21/16 07:00 General appearance: Present: cooperative, pleasant, no acute distress, answers questions appropriately - Head Head exam: Present: atraumatic, normocephalic - Eye Eye exam: Present: PERRL, conjuntiva pink, sclera anicteric - Neck Neck exam general surgery: Present: supple, trachea midline. Absent: lymphadenopathy - Respiratory Respiratory exam: Present: CTAB. Absent: accessory muscle use, rales, rhonchi, wheezes - Cardiovascular Cardiovascular exam: Present: RRR, +S1, +S2. Absent: diastolic murmur, gallop, rubs, systolic murmur - GI/Abdominal GI/Abdominal exam: Present: distended, normal bowel sounds, soft, no peritoneal signs. Absent: tenderness - Extremities Exam Extremities exam: Present: pedal edema, warm, radial pulses palpable and symetrical. Absent: calf tenderness, cyanotic - Neurological Exam Neurological exam: Present: alert, no focal deficits. Absent: facial droop, speech deficit - Skin Skin exam: Present: dry, intact Internal Medicine: Result - Labs CBC & Chem 7: 05/21/16 04:27 05/21/16 04:27 Labs: Short CBC 05/21/16 Range/Units 04:27 WBC 11.0 (4.3-11.1) K/mcL Hgb 12.2 L (12.9-16.9) g/dL Hct 37.5 (37.5-50.1) % Plt Count 235 D (140-400) K/mcL Neutrophils # 8.7 (1.6-8.9) K/mcL BMP 05/21/16 04:27 Sodium 137 Potassium 4.6 H Chloride 103 Carbon Dioxide 28 BUN 36 H Creatinine 1.16 Glucose 75 Calcium 8.2 L - ABG Interpretation ABG results: PT/INR, D-dimer PT 12.8 Seconds (9.4-12.1) H 05/18/16 14:18 Consult Discharge Plan - Plan Referrals: Rex Rubi MD [Primary Care Provider] - 05/28/16 10:00 am Vincent Morelos MD [Partnered Physician] - 06/01/16 10:10 am <Major Cadet - Last Filed: 05/21/16 17:30> - Assessment and plan (1) Anasarca Current Visit: Yes Status: Acute (2) Systolic CHF, acute on chronic Current Visit: No Status: Acute (3) Coronary artery disease Current Visit: No Status: Chronic Qualifiers: Coronary Disease-Associated Artery/Lesion type: [place] artery [place] vs. transplanted heart: [place] heart Associated angina: without angina Qualified Code(s): I25.10 - Atherosclerotic heart disease of [place] coronary artery without angina pectoris - Constitutional Vitals: Temp Pulse Resp BP Pulse Ox 98.3 F 69 15 95/65 100 05/21/16 16:18 05/21/16 16:18 05/21/16 16:18 05/21/16 16:18 05/21/16 16:18 Internal Medicine: Result - Labs CBC & Chem 7: 05/21/16 04:27 05/21/16 04:27 Labs: Short CBC 05/21/16 Range/Units 04:27 WBC 11.0 (4.3-11.1) K/mcL Hgb 12.2 L (12.9-16.9) g/dL Hct 37.5 (37.5-50.1) % Plt Count 235 D (140-400) K/mcL Neutrophils # 8.7 (1.6-8.9) K/mcL BMP 05/21/16 04:27 Sodium 137 Potassium 4.6 H Chloride 103 Carbon Dioxide 28 BUN 36 H Creatinine 1.16 Glucose 75 Calcium 8.2 L - ABG Interpretation ABG results: PT/INR, D-dimer PT 12.8 Seconds (9.4-12.1) H 05/18/16 14:18 - Attending Attestation I examined this patient and my medical decision-making was reviewed with the Resident Physician. I agree with the documented findings, disposition and treatment plan as described except to the extent set forth below. Mr Retana is currently admitted for acute respiratory distress due to massive ascites and fluid overload. He remains moderate to high risk due to potential for worsening respiratory and cardiac status. Mr. Retana is sitting on the edge of bed eating lunch. He says his pain is controlled and breathing is OK at this time. He denies CP or GI symptoms. Pathology report is still pending. Exam Alert. Comfortable Heart irreg lungs dimiished Abd soft. Fluid present. Nontender Edema present I/P 1. Respiratory distress due to ascites and CHF 2. 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 Carcinomatosis 4. Anasarca Further diagnoses and plan as above.
--- NOTE | 2016-05-21 10:51 | Palliative Progress Note ---
Date of Encounter: 05/21/16 Time of Encounter: 10:15 - Assessment and plan (1) Dyspnea Current Visit: Yes Status: Acute Assessment and plan: Mr. Retana reports shortness of breath with exertion has improved. He still feels overall generalized weakness. Continue to follow. Supplemental O2, activity as tolerated. Qualifiers: Dyspnea type: dyspnea on exertion Qualified Code(s): R06.09 - Other forms of dyspnea (2) Ascites Current Visit: Yes Status: Acute Assessment and plan: Mr. Retana had a paracentesis 2 days ago with 4.6L of fluid removed. Fluid was sent for pathology, results pending. He reports some improvement in breathing since the paracentesis. 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 Appreciate assistance. (4) Congestive heart failure (CHF) Current Visit: Yes Status: Acute Qualifiers: Congestive heart failure type: systolic Congestive heart failure chronicity : acute on chronic Qualified Code(s): I50.23 - Acute on chronic systolic ( congestive) heart failure (5) Goals of care, counseling/discussion Current Visit: Yes Status: Acute Assessment and plan: Family meeting yesterday to discuss goals of care. Oncology consulted and spoke with patient and his daughter. Discharge plan is to go to [facility] for rehab once stable. Advanced directives completed prior to admission, and family will bring today. - Time Spent With Patient Total time spent is greater than 50% in coordination of care (as documented) at patient's floor/unit and/or counseling patient: - Subjective Interval history: Mr. Retana is lying in bed, just finishing with physical therapy. He was able to ambulate in the room today. He denies feelings of pain, nausea/vomiting, abdominal pressure. He reports persistent swelling to lower extremities, but feels it may be better today. - Constitutional Vitals: Abnormal lab results Hgb 12.2 g/dL (12.9-16.9) L 05/21/16 04:27 MCV 82.8 fL (83.0-100.0) L 05/21/16 04:27 MCH 26.9 pg (28.0-33.3) L 05/21/16 04:27 RDW 18.3 % (11.5-14.5) H 05/21/16 04:27 Lymphocytes # 0.5 K/mcL (0.6-4.6) L 05/21/16 04:27 Nucleated RBCs/100 WBC 0.5 /100 WBC (0) H 05/21/16 04:27 Reactive Lymphocytes Present (Not Present) A 05/20/16 04:46 Smudge Cells Present (Not Present) A 05/20/16 04:46 PT 12.8 Seconds (9.4-12.1) H 05/18/16 14:18 Potassium 4.6 mEq/L (3.5-4.5) H 05/21/16 04:27 BUN 36 mg/dL (8-26) H 05/21/16 04:27 BUN/Creatinine Ratio 31 (6-26) H 05/21/16 04:27 Lactic Acid 2.4 mmol/L (0.5-2.2) H 05/18/16 17:21 Uric Acid 8.5 mg/dL (3.5-7.2) H 05/20/16 04:46 Calcium 8.2 mg/dL (8.6-10.8) L 05/21/16 04:27 AST 45 Units/L (5-34) H 05/19/16 08:18 Troponin I 0.11 ng/mL (0-0.03) H* 05/18/16 14:18 B-Natriuretic Peptide 1094 pg/mL (0-100) H 05/18/16 14:18 Total Protein (PEP) 4.4 g/dL (6.0-8.3) L 05/20/16 04:46 Albumin 2.2 g/dL (3.5-5.0) L 05/19/16 08:18 Albumin (PEP) 2.0 g/dL (3.2-4.8) L 05/20/16 04:46 Globulin 3.9 g/dL (2.4-3.5) H 05/19/16 08:18 Albumin/Globulin Ratio 0.6 (1.1-2.2) L 05/19/16 08:18 Beta Globulins 0.5 g/dL (0.6-1.1) L 05/20/16 04:46 Ur Leukocyte Esterase Trace (Negative) H 05/18/16 23:10 Ur Culture Indicated? YES (NO) A 05/18/16 23:10 Fluid Appearance Hazy (Clear) A 05/19/16 11:00 General appearance: Present: cooperative, no acute distress - ENT ENT exam: Present: mucous membranes moist - Respiratory Respiratory exam: Present: decreased breath sounds. Absent: accessory muscle use, respiratory distress, rhonchi - Cardiovascular Cardiovascular exam: Present: RRR - GI/Abdominal GI/Abdominal exam: Present: normal bowel sounds, soft. Absent: tenderness - Extremities Exam Extremities exam: Present: pedal edema - Expanded Lower Extremity Exam Lower leg exam: Present: swelling - Neurological Exam Neurological exam: Present: alert, oriented X3, no focal deficits, strengths equal and symetr throughout - Skin Skin exam: Present: dry, warm Palliative Quality Palliative Quality: Screen for Code Status: Yes, Screen for Goals of Care: Yes, Screen for Pain: Yes, If Pain Regimen Started, Initiate Bowel Regimen: No, Screen for Nausea/Vomitting: Yes - Labs CBC & Chem 7: 05/21/16 04:27 05/21/16 04:27 Labs: Laboratory Results - last 24 hr 05/20/16 05/21/16 05/21/16 04:46 04:27 04:27 WBC 11.0 RBC 4.53 Hgb 12.2 L Hct 37.5 MCV 82.8 L MCH 26.9 L MCHC 32.5 RDW 18.3 H Plt Count 235 D MPV 11.4 Immature Gran % 4.0 Seg Neutrophils % 79.4 Lymphocytes % 4.6 Monocytes % 9.2 Eosinophils % 2.0 Basophils % 0.8 Neutrophils # 8.7 Lymphocytes # 0.5 L Monocytes # 1.0 Eosinophils # 0.2 Basophils # 0.1 Nucleated RBCs/100 WBC 0.5 H Sodium 137 Potassium 4.6 H Chloride 103 Carbon Dioxide 28 BUN 36 H Creatinine 1.16 Est GFR ( Amer) > 60 Est GFR (Non-Af Amer) 60 BUN/Creatinine Ratio 31 H Glucose 75 Calculated Osmolality 291 Calcium 8.2 L Total Protein (PEP) 4.4 L Albumin (PEP) 2.0 L Albumin/Globulin (PEP) 0.80 Esmwd-5-Zkskywyny 0.4 Onenx-9-Ebzkeldrb 0.8 Beta Globulins 0.5 L Gamma Globulins 0.8 PEP Interpretation See below Immunotype (IS) See below - ABG Interpretation ABG results: PT/INR, D-dimer PT 12.8 Seconds (9.4-12.1) H 05/18/16 14:18 Consult Discharge Plan - Plan Referrals: Rex Rubi MD [Primary Care Provider] - 05/28/16 10:00 am Vincent Morelos MD [Partnered Physician] - 06/01/16 10:10 am
--- NOTE | 2016-05-21 10:53 | Nephrology Progress Note ---
Date of Encounter: 05/21/16 Time of Encounter: 09:30 - Assessment and Plan (1) Acute kidney injury Current Visit: Yes Status: Acute SCr is nicely improving. LE edema is stable, but when able I recommend using the lowest, but effective dosing of diuretics. 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 It's not clear why he was taking a very unusual formulation of K+ as an outpt, but I would continue to hold it until his renal function further improves. Follow a renal protective strategy: dose any renally cleared Rx by GFR, avoid nephrotoxin exposures, avoid excessive hypotension (to help facilitate adequate renal perfusion). Daily weights and strict I/Os are necessary. (2) Carcinomatosis Current Visit: Yes Status: Acute (3) Congestive heart failure (CHF) Current Visit: Yes Status: Acute As per primary team. Qualifiers: Congestive heart failure type: systolic Congestive heart failure chronicity : acute on chronic Qualified Code(s): I50.23 - Acute on chronic systolic ( congestive) heart failure (4) Hyperkalemia Current Visit: Yes Status: Acute Resolving. Low K+ diet. Subjective Principal diagnosis: Dyspnea, Ascites, Carcinomatosis Interval history: He was see/examined earlier today. He did not affirm uremic complaints (i.e., no N/V/D or lost appetite or confusion). Objective - Vital Signs Vital signs: Vital Signs Temp Pulse Resp BP Pulse Ox 05/21/16 07:00 98.3 F 69 15 101/68 94 L 05/21/16 03:57 97.7 F 69 16 98 05/20/16 23:45 97.8 F 70 16 96/78 95 05/20/16 20:10 97 05/20/16 18:46 98 F 69 18 100/70 97 05/20/16 15:00 97.3 F L 69 15 98/60 98 05/20/16 11:43 97.3 F L 69 15 94/65 98 Intake and Output 05/20/16 05/21/16 05/21/16 23:59 07:59 15:59 Intake Total 120 / 120 0 / 0 120 / 120 Output Total 225 / 225 300 / 300 120 / 120 Balance -105 / -105 -300 / -300 0 / 0 Intake: Oral 120 / 120 0 / 0 120 / 120 Output: Urine 225 / 225 300 / 300 120 / 120 Other: Meal Dinner Breakfast Percent of Meal Consumed 50% 100% Weight 83.96 kg Patient Weight 05/21/16 23:59 Weight 83.96 kg - General Appearance Exam: General appearance: Present: well-developed, well-nourished, frail EENT: Present: ATNC, PERRL, mucous membranes moist Neck: Present: supple Respiratory: Present: clear Cardiology: Present: edema (1-2+ pitting, pretibial edema with shiny skin b/l), normal S1, normal S2 Gastrointestinal: Present: normoactive bowel sounds, no guarding, distended ( but improved compared to prior the paracentesis.) Integumentary: Present: no rash, warm and dry Neurologic: Present: no focal deficit, no asterixis, alert and oriented x3 Musculoskeletal: Present: no deformities, no erythema, no cyanosis Psychiatric: Present: mood/affect appropriate, cooperative - Lab 05/21/16 04:27 05/21/16 04:27 Most recent lab results Calcium 8.2 mg/dL (8.6-10.8) L 05/21/16 04:27 Phosphorus 3.6 mg/dL (2.3-4.7) 05/20/16 04:46 Magnesium 2.2 mg/dL (1.6-2.6) 05/20/16 04:46 Consult Discharge Plan - Plan Referrals: Rex Rubi MD [Primary Care Provider] - 05/28/16 10:00 am Vincent Morelos MD [Partnered Physician] - 06/01/16 10:10 am
[2016-05-22 07:07] LABS: Basophils # 0.1 K/mcL (0.0-0.2); Basophils % 0.9 %; Eosinophils # 0.2 K/mcL (0.0-0.6); Hematocrit 41.1 % (37.5-50.1); Hemoglobin 12.9 g/dL (12.9-16.9); Immature Granulocytes % 4.4 % (0-4); Lymphocytes # 0.5 K/mcL (0.6-4.6); Lymphocytes % 4.2 %; Mean Corpuscular HGB Conc 31.4 g/dL (31.6-35.5); Mean Corpuscular Hemoglobin 26.2 pg (28.0-33.3); Mean Corpuscular Volume 83.5 fL (83.0-100.0); Mean Platelet Volume 10.7 fL (9.4-12.4); Monocytes # 1.1 K/mcL (0.0-1.3); Monocytes % 9.4 %; Neutrophils # 9.3 K/mcL (1.6-8.9); Platelet Count 253 K/mcL (140-400); Red Blood Count 4.92 M/mcL (4.19-5.50); Red Cell Distribution Width 18.5 % (11.5-14.5); Segmented Neutrophils % 79.1 %
[2016-05-22] MEDS: Furosemide 40 MG/4 ML VIAL IVP SCH ×2 (07:53→20:37)
--- NOTE | 2016-05-22 07:54 | Event Note ---
Date of Encounter: 05/22/16 Time of Encounter: 07:52 Nephrology Chart Review I reviewed his lab trends, BPs and I/Os. I had ordered a BMP for today (but it appears to have not been drawn yet, though the CBC was drawn and is already reported). However, his renal had been improving nicely based upon prior BMPs. No need for MANAGER TITLE. Therefore, I will sign-off, but please feel free to contact me or re-consult as needed. Thank you for having consulted the [facility] group. After discharge, I recommend he have a BMP checked in about 1-2 weeks; and please arrange a [facility] Follow-up appt with me in about 4-8 weeks. Thank you.
[2016-05-22] MEDS ORDERED: Albumin 25% 25gram/100mL 25 GM/100 ML IV.SOLN IVPB ONE (08:02)
[2016-05-22] MEDS: *HR* Heparin 5,000 UNIT/ML VIAL SQ SCH ×3 (08:12→23:27)
[2016-05-22] MEDS: *HR* Amiodarone 200 MG TABLET PO SCH (08:13)
[2016-05-22] MEDS: Thiamine (B-1) 100 MG TABLET PO SCH (08:13)
[2016-05-22] MEDS: Gabapentin 100 MG CAPSULE PO SCH ×3 (08:13→20:36)
[2016-05-22] MEDS: Aspirin 81 MG TAB.CHEW PO SCH (08:13)
[2016-05-22] MEDS: Folic Acid 1 MG TABLET PO SCH (08:13)
[2016-05-22] MEDS: Cyanocobalamin (B-12) 1,000 MCG TABLET PO SCH (08:13)
[2016-05-22 08:39] LABS: BUN/Creatinine Ratio 30 (6-26); Blood Urea Nitrogen 31 mg/dL (8-26); Calcium 8.2 mg/dL (8.6-10.8); Carbon Dioxide 27 mEq/L (19-29); Chloride 103 mEq/L (98-109); Glucose 79 mg/dL (70-99); Osmolality,Calculated 289 (280-300); Potassium 4.6 mEq/L (3.5-4.5); Sodium 137 mEq/L (136-145); eGFR For African Americans > 60 (> 60); eGFR For Non-African Americans > 60 (> 60)
--- NOTE | 2016-05-22 15:35 | Internal Med Progress Note ---
Date of Encounter: 05/22/16 Time of Encounter: 11:00 - Assessment and plan (1) Anasarca Current Visit: Yes Status: Acute Assessment and plan: Appears to be increasing today. Unable to tolerate much diuresis due to blood pressure. Given albumin today. (2) Ascites Current Visit: Yes Status: Acute Assessment and plan: Cytology pending. Appears to be reaccumulating daily. May need to have repeat paracentesis. Qualifiers: Ascites type: malignant Qualified Code(s): R18.0 - Malignant ascites (3) Other hypotension Current Visit: Yes Status: Acute Assessment and plan: Most likely due to volume depletion. Albumin given (4) Systolic CHF, acute on chronic Current Visit: No Status: Acute Assessment and plan: Echo 05/19 revealed EF of 35-40%, same as previous echo on 02/11 Diuresing when able with BP. Continue supportive care. (5) Carcinomatosis Current Visit: Yes Status: Acute Assessment and plan: Awaiting final pathology. Palliative care consulted. (6) Atrial fibrillation Current Visit: No Status: Chronic Assessment and plan: Continue home medications. Rate controlled currently. Qualifiers: Atrial fibrillation type: chronic Qualified Code(s): I48.2 - Chronic atrial fibrillation (7) Coronary artery disease Current Visit: No Status: Chronic Assessment and plan: No acute issues. Qualifiers: Coronary Disease-Associated Artery/Lesion type: [place] artery [place] vs. transplanted heart: [place] heart Associated angina: without angina Qualified Code(s): I25.10 - Atherosclerotic heart disease of [place] coronary artery without angina pectoris (8) Acute kidney injury Current Visit: No Status: Resolved - Subjective Interval history: Mr. Retana is currently admitted for acute respiratory distress due to fluid overload and massive ascites (most likely malignant). He remains moderate to high risk due to the potential for worsening respiratory failure and renal failure. Mr. Retana is awake and alert. His blood pressure has been low today. He is eating OK and sleeping OK. No CP. SOB about the same especially when up and walking. He is unsure if fluid is returning. - Constitutional Vitals: Temp Pulse Resp BP Pulse Ox 97.5 F L 69 18 98/66 95 05/22/16 12:14 05/22/16 12:14 05/22/16 12:14 05/22/16 12:14 05/22/16 12:14 General appearance: Present: cooperative, pleasant, answers questions appropriately - Head Head exam: Present: normocephalic - Eye Eye exam: Present: EOMI, conjuntiva pink - ENT ENT exam: Present: mucous membranes dry - Respiratory Respiratory exam: Present: decreased breath sounds, CTAB - Cardiovascular Cardiovascular exam: Present: RRR. Absent: tachycardia - GI/Abdominal GI/Abdominal exam: Present: soft. Absent: mass, tenderness Additional comments: Increased fluid on exam today. Nontender to palpation. - Extremities Exam Extremities exam: Present: pedal edema, warm - Neurological Exam Neurological exam: Present: alert, oriented X3, no focal deficits - Skin Skin exam: Present: dry, vesicles. Absent: rash Internal Medicine: Result - Labs CBC & Chem 7: 05/22/16 06:33 05/22/16 06:33 Labs: Short CBC 05/22/16 Range/Units 06:33 WBC 11.8 H (4.3-11.1) K/mcL Hgb 12.9 (12.9-16.9) g/dL Hct 41.1 (37.5-50.1) % Plt Count 253 (140-400) K/mcL Neutrophils # 9.3 H (1.6-8.9) K/mcL BMP 05/22/16 06:33 Sodium 137 Potassium 4.6 H Chloride 103 Carbon Dioxide 27 BUN 31 H Creatinine 1.03 Glucose 79 Calcium 8.2 L - ABG Interpretation ABG results: PT/INR, D-dimer PT 12.8 Seconds (9.4-12.1) H 05/18/16 14:18 Consult Discharge Plan - Plan Referrals: Rex Rubi MD [Primary Care Provider] - 05/28/16 10:00 am Vincent Morelos MD [Partnered Physician] - 06/01/16 10:10 am
[2016-05-22 18:19] LABS: Complement Component 3 71 mg/dL (88-201); Complement Component 4 26 mg/dL (10-40); Myeloperoxidase Ab 1 AU/mL (0-19); Serine Protease-3 Antibody 0 AU/mL (0-19)
--- NOTE | 2016-05-23 08:39 | Internal Med Progress Note ---
Date of Encounter: 05/23/16 Time of Encounter: 08:19 - Assessment and plan (1) Anasarca Current Visit: Yes Status: Acute (2) Ascites Current Visit: Yes Status: Acute Qualifiers: Ascites type: malignant Qualified Code(s): R18.0 - Malignant ascites (3) Other hypotension Current Visit: Yes Status: Acute (4) Systolic CHF, acute on chronic Current Visit: No Status: Acute (5) Carcinomatosis Current Visit: Yes Status: Acute (6) Atrial fibrillation Current Visit: No Status: Chronic Qualifiers: Atrial fibrillation type: chronic Qualified Code(s): I48.2 - Chronic atrial fibrillation (7) Coronary artery disease Current Visit: No Status: Chronic Qualifiers: Coronary Disease-Associated Artery/Lesion type: [place] artery [place] vs. transplanted heart: [place] heart Associated angina: without angina Qualified Code(s): I25.10 - Atherosclerotic heart disease of [place] coronary artery without angina pectoris - Subjective Interval history: Mr. Retana is currently admitted for acute respiratory distress due to fluid overload and massive ascites (most likely malignant). He remains moderate to high risk due to the potential for worsening respiratory failure and renal failure. Mr. Retana is awake and alert. His blood pressure has been low today. He is eating OK and sleeping OK. No CP. SOB about the same especially when up and walking. He is unsure if fluid is returning. - Constitutional Vitals: Temp Pulse Resp BP Pulse Ox 97.7 F 69 16 92/59 99 05/23/16 07:36 05/23/16 07:36 05/23/16 07:36 05/23/16 07:36 05/23/16 07:36 General appearance: Present: cooperative, pleasant, answers questions appropriately Internal Medicine: Result - Labs CBC & Chem 7: 05/22/16 06:33 05/22/16 06:33 Labs: BMP 05/22/16 06:33 Sodium 137 Potassium 4.6 H Chloride 103 Carbon Dioxide 27 BUN 31 H Creatinine 1.03 Glucose 79 Calcium 8.2 L - ABG Interpretation ABG results: PT/INR, D-dimer PT 12.8 Seconds (9.4-12.1) H 05/18/16 14:18 Consult Discharge Plan - Plan Referrals: Rex Rubi MD [Primary Care Provider] - 05/28/16 10:00 am Vincent Morelos MD [Partnered Physician] - 06/01/16 10:10 am
[2016-05-23] MEDS: *HR* Heparin 5,000 UNIT/ML VIAL SQ SCH ×2 (08:53→15:31)
[2016-05-23] MEDS: Aspirin 81 MG TAB.CHEW PO SCH (08:55)
[2016-05-23] MEDS: Cyanocobalamin (B-12) 1,000 MCG TABLET PO SCH (08:56)
[2016-05-23] MEDS: *HR* Amiodarone 200 MG TABLET PO SCH (08:56)
[2016-05-23] MEDS: Folic Acid 1 MG TABLET PO SCH (08:56)
[2016-05-23] MEDS: Thiamine (B-1) 100 MG TABLET PO SCH (08:56)
[2016-05-23] MEDS: Gabapentin 100 MG CAPSULE PO SCH ×3 (08:56→21:55)
[2016-05-23] MEDS: Furosemide 40 MG/4 ML VIAL IVP SCH ×2 (09:00→21:55)
--- NOTE | 2016-05-23 09:16 | Internal Med Progress Note ---
<Johnathon Tompkins - Last Filed: 05/23/16 09:12> Date of Encounter: 05/23/16 Time of Encounter: 09:13 - Assessment and plan (1) Ascites Current Visit: Yes Status: Acute Assessment and plan: 2/2 peritoneal carcinomatosis Cytology pending. reaccumulating daily. 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 Palliative care consulted. (4) Congestive heart failure (CHF) Current Visit: Yes Status: Acute Qualifiers: Congestive heart failure type: systolic Congestive heart failure chronicity : acute on chronic Qualified Code(s): I50.23 - Acute on chronic systolic ( congestive) heart failure (5) Multiple lung nodules Current Visit: Yes Status: Chronic (6) Atrial fibrillation Current Visit: No Status: Chronic Assessment and plan: Continue home medications. Rate controlled currently. Qualifiers: Atrial fibrillation type: chronic Qualified Code(s): I48.2 - Chronic atrial fibrillation (7) Acute kidney injury Current Visit: No Status: Resolved (8) DVT prophylaxis Current Visit: Yes Status: Acute Assessment and plan: Heparin 5000 units TID - Time Spent With Patient 25 - 35 minutes - Subjective Interval history: patient is awake, alert and oriented. He watched the [employer] last night. He continues to eat OK and sleep OK, however he's bee having some shortness of breath when laying flat. No fevers/chils/chest pain/nausea/ vomiting. He does have some decr appetite. - Constitutional Vitals: Temp Pulse Resp BP Pulse Ox 97.7 F 69 16 92/59 99 05/23/16 07:36 05/23/16 07:36 05/23/16 07:36 05/23/16 07:36 05/23/16 07:36 General appearance: Present: A&O X 3, no acute distress, answers questions appropriately - Head Head exam: Present: atraumatic, normocephalic - Eye Eye exam: Present: PERRL, conjuntiva pink, sclera anicteric Pupils: Present: PERRL - Neck Neck exam general surgery: Present: supple, trachea midline. Absent: lymphadenopathy - Respiratory Respiratory exam: Present: rales (bilateral lower and upper lobes crackles). Absent: respiratory distress, wheezes - Cardiovascular Cardiovascular exam: Present: RRR, +S1, +S2. Absent: diastolic murmur, gallop, rubs, systolic murmur - GI/Abdominal GI/Abdominal exam: Present: distended, rigid, no peritoneal signs. Absent: tenderness - Extremities Exam Additional comments: b/l le wrapped in howard bandage, edema present in thigh regions - Neurological Exam Neurological exam: Present: CN II-XII intact, oriented X3, no focal deficits. Absent: pronater drift, facial droop, speech deficit - Skin Skin exam: Present: intact Internal Medicine: Result - Labs CBC & Chem 7: 05/22/16 06:33 05/22/16 06:33 - ABG Interpretation ABG results: PT/INR, D-dimer PT 12.8 Seconds (9.4-12.1) H 05/18/16 14:18 Consult Discharge Plan - Plan Referrals: Rex Rubi MD [Primary Care Provider] - 05/28/16 10:00 am Vincent Morelos MD [Partnered Physician] - 06/01/16 10:10 am <Major Cadet A - Last Filed: 05/23/16 17:36> - Assessment and plan (1) Anasarca Current Visit: Yes Status: Acute (2) Ascites Current Visit: Yes Status: Acute Qualifiers: Ascites type: malignant Qualified Code(s): R18.0 - Malignant ascites (3) Other hypotension Current Visit: Yes Status: Acute Assessment and plan: BP has been up and down. Following. (4) Systolic CHF, acute on chronic Current Visit: No Status: Acute Assessment and plan: Unable to diurese much due to blood pressure (low). Supportive care. (5) Carcinomatosis Current Visit: Yes Status: Acute (6) Atrial fibrillation Current Visit: No Status: Chronic Qualifiers: Atrial fibrillation type: chronic Qualified Code(s): I48.2 - Chronic atrial fibrillation (7) Coronary artery disease Current Visit: No Status: Chronic Qualifiers: Coronary Disease-Associated Artery/Lesion type: [place] artery [place] vs. transplanted heart: [place] heart Associated angina: without angina Qualified Code(s): I25.10 - Atherosclerotic heart disease of [place] coronary artery without angina pectoris - Constitutional Vitals: Temp Pulse Resp BP Pulse Ox 97.8 F 69 15 100/70 100 05/23/16 16:00 05/23/16 16:00 05/23/16 16:00 05/23/16 16:00 05/23/16 16:00 Internal Medicine: Result - Labs CBC & Chem 7: 05/22/16 06:33 05/22/16 06:33 - ABG Interpretation ABG results: PT/INR, D-dimer PT 12.8 Seconds (9.4-12.1) H 05/18/16 14:18 - Attending Attestation I examined this patient and my medical decision-making was reviewed with the Resident Physician. I agree with the documented findings, disposition and treatment plan as described except to the extent set forth below. Mr. Retana is currently admitted for acute respiratory distress related to CHF and massive ascites (presumed malignant). He remains moderate to high risk due to potential for respiratory failure related to disease. Mr. Retana had more dyspnea last night. He stated he was lying on his side and felt he could not breathe. He is OK now with his head elevated. He is currently eating breakfast without difficulty. No pain. No cough. No fever or chills. Exam Alert. Comfortable upright. Mucus membranes dry Heart reg (paced) Lungs diminished. Abd distended - fluid wave present. Much larger than yesterday. Edema present I/P 1. Acute hypoxic resp failure related to CHF and ascites 2. Massive ascites - will need paracentesis again 3. Carcinomatosis Awaiting path report. Pt to go to ECF when insurance approved.
[2016-05-23 10:40] LABS: ANA IgG by ELISA NONE DETECTED (None Detected)
[2016-05-24 05:55] LABS: Hematocrit 38.9 % (37.5-50.1); Hemoglobin 12.6 g/dL (12.9-16.9); Mean Corpuscular HGB Conc 32.4 g/dL (31.6-35.5); Mean Corpuscular Hemoglobin 26.9 pg (28.0-33.3); Mean Corpuscular Volume 82.9 fL (83.0-100.0); Mean Platelet Volume 11.1 fL (9.4-12.4); Platelet Count 232 K/mcL (140-400); Red Blood Count 4.69 M/mcL (4.19-5.50); Red Cell Distribution Width 18.4 % (11.5-14.5)
[2016-05-24 06:37] LABS: BUN/Creatinine Ratio 41 (6-26); Blood Urea Nitrogen 34 mg/dL (8-26); Calcium 8.4 mg/dL (8.6-10.8); Carbon Dioxide 27 mEq/L (19-29); Chloride 105 mEq/L (98-109); Glucose 77 mg/dL (70-99); Osmolality,Calculated 296 (280-300); Potassium 3.8 mEq/L (3.5-4.5); Sodium 140 mEq/L (136-145); eGFR For African Americans > 60 (> 60); eGFR For Non-African Americans > 60 (> 60)
--- NOTE | 2016-05-24 09:18 | Palliative Progress Note ---
Date of Encounter: 05/24/16 Time of Encounter: 09:16 - Assessment and plan (1) Dyspnea Current Visit: Yes Status: Acute Assessment and plan: Mr. Retana reports shortness of breath with activity. He continues with supplemental oxygen. A paracentesis is planned for later today. Qualifiers: Dyspnea type: dyspnea on exertion Qualified Code(s): R06.09 - Other forms of dyspnea (2) Ascites Current Visit: Yes Status: Acute Assessment and plan: Mr. Retana is scheduled for a paracentesis today. Fluid from prior paracentesis was sent for pathology, results pending. Qualifiers: Ascites type: malignant Qualified Code(s): R18.0 - Malignant ascites (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 Assessment and plan: Oncology following, path pending. Appreciate assistance. (4) Congestive heart failure (CHF) Current Visit: Yes Status: Acute Qualifiers: Congestive heart failure type: systolic Congestive heart failure chronicity : acute on chronic Qualified Code(s): I50.23 - Acute on chronic systolic ( congestive) heart failure (5) Goals of care, counseling/discussion Current Visit: Yes Status: Acute Assessment and plan: Discussed plan of care with patient. Planning for paracentesis later today per IR. Reviewed code status options. Mr. Retana is still pondering his options. - Time Spent With Patient Total time spent is greater than 50% in coordination of care (as documented) at patient's floor/unit and/or counseling patient: - Subjective Interval history: Mr. Retana is lying in bed, preparing to work with physical therapy. He has been able to ambulate in the room, and that will be his goal for today. He denies feelings of pain, nausea/vomiting. His abdominal pressure is increasing as well as his edema. - Constitutional Vitals: Abnormal lab results WBC 11.8 K/mcL (4.3-11.1) H 05/24/16 04:51 Hgb 12.6 g/dL (12.9-16.9) L 05/24/16 04:51 MCV 82.9 fL (83.0-100.0) L 05/24/16 04:51 MCH 26.9 pg (28.0-33.3) L 05/24/16 04:51 RDW 18.4 % (11.5-14.5) H 05/24/16 04:51 Immature Gran % 4.4 % (0-4) H 05/22/16 06:33 Neutrophils # 9.3 K/mcL (1.6-8.9) H 05/22/16 06:33 Lymphocytes # 0.5 K/mcL (0.6-4.6) L 05/22/16 06:33 Nucleated RBCs/100 WBC 0.5 /100 WBC (0) H 05/21/16 04:27 Reactive Lymphocytes Present (Not Present) A 05/20/16 04:46 Smudge Cells Present (Not Present) A 05/20/16 04:46 PT 12.8 Seconds (9.4-12.1) H 05/18/16 14:18 BUN 34 mg/dL (8-26) H 05/24/16 04:51 BUN/Creatinine Ratio 41 (6-26) H 05/24/16 04:51 Lactic Acid 2.4 mmol/L (0.5-2.2) H 05/18/16 17:21 Uric Acid 8.5 mg/dL (3.5-7.2) H 05/20/16 04:46 Calcium 8.4 mg/dL (8.6-10.8) L 05/24/16 04:51 AST 45 Units/L (5-34) H 05/19/16 08:18 Troponin I 0.11 ng/mL (0-0.03) H* 05/18/16 14:18 B-Natriuretic Peptide 1094 pg/mL (0-100) H 05/18/16 14:18 Total Protein (PEP) 4.4 g/dL (6.0-8.3) L 05/20/16 04:46 Albumin 2.2 g/dL (3.5-5.0) L 05/19/16 08:18 Albumin (PEP) 2.0 g/dL (3.2-4.8) L 05/20/16 04:46 Globulin 3.9 g/dL (2.4-3.5) H 05/19/16 08:18 Albumin/Globulin Ratio 0.6 (1.1-2.2) L 05/19/16 08:18 Beta Globulins 0.5 g/dL (0.6-1.1) L 05/20/16 04:46 Ur Leukocyte Esterase Trace (Negative) H 05/18/16 23:10 Ur Culture Indicated? YES (NO) A 05/18/16 23:10 Fluid Appearance Hazy (Clear) A 05/19/16 11:00 Complement C3 71 mg/dL (88-201) L 05/20/16 04:46 General appearance: Present: cooperative, no acute distress - ENT ENT exam: Present: mucous membranes moist - Respiratory Respiratory exam: Present: decreased breath sounds. Absent: accessory muscle use, respiratory distress - Expanded Respiratory Exam Location: rales: Right, Lower, wheezes: Left, Right - Cardiovascular Cardiovascular exam: Present: RRR, systolic murmur - GI/Abdominal GI/Abdominal exam: Present: normal bowel sounds. Absent: tenderness - Expanded Abdominal Exam GI/Abdominal exam: Present: ascites - Extremities Exam Extremities exam: Present: pedal edema - Expanded Lower Extremity Exam Lower leg exam: Present: swelling - Neurological Exam Neurological exam: Present: alert, oriented X3, no focal deficits, strengths equal and symetr throughout - Skin Skin exam: Present: dry, warm Palliative Quality Palliative Quality: Screen for Code Status: Yes, Screen for Goals of Care: Yes, Screen for Pain: Yes, If Pain Regimen Started, Initiate Bowel Regimen: No, Screen for Nausea/Vomitting: Yes - Labs CBC & Chem 7: 05/24/16 04:51 05/24/16 04:51 Labs: Laboratory Results - last 24 hr 05/20/16 05/24/16 05/24/16 04:46 04:51 04:51 WBC 11.8 H RBC 4.69 Hgb 12.6 L Hct 38.9 MCV 82.9 L MCH 26.9 L MCHC 32.4 RDW 18.4 H Plt Count 232 MPV 11.1 Sodium 140 Potassium 3.8 Chloride 105 Carbon Dioxide 27 BUN 34 H Creatinine 0.82 Est GFR ( Amer) > 60 Est GFR (Non-Af Amer) > 60 BUN/Creatinine Ratio 41 H Glucose 77 Calculated Osmolality 296 Calcium 8.4 L JOSE RAFAEL Screen NONE DETECTED Myeloperoxidase Ab 1 Serine Protease 3 Ab 0 Complement C3 71 L Complement C4 26 - ABG Interpretation ABG results: PT/INR, D-dimer PT 12.8 Seconds (9.4-12.1) H 05/18/16 14:18 Consult Discharge Plan - Plan Referrals: Rex Rubi MD [Primary Care Provider] - 05/28/16 10:00 am Vincent Morelos MD [Partnered Physician] - 06/01/16 10:10 am
[2016-05-24] MEDS: Furosemide 40 MG/4 ML VIAL IVP SCH ×2 (10:11→21:04)
--- NOTE | 2016-05-24 11:45 | Internal Med Progress Note ---
<Johnathon Tompkins - Last Filed: 05/24/16 11:42> Date of Encounter: 05/24/16 Time of Encounter: 11:42 - Assessment and plan (1) Ascites Current Visit: Yes Status: Acute Assessment and plan: 2/ peritoneal carcinomatosis - patient is hemodynamically stable, but has increasing difficulties in getting up, abdomen is more distended increased today, will obtain a therapeutic paracentesis continuing to follow cytology Qualifiers: Ascites type: malignant Qualified Code(s): R18.0 - Malignant ascites (2) Anasarca Current Visit: Yes Status: Acute Assessment and plan: this is due to his carcinomatosis and systolic heart failure received diuresis yesterday evening and today, this has improved blood pressure is stable continue diuresis continue strict i/o monitoring ty consults palliative, cardiology, oncology, nephrology (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 Assessment and plan: Awaiting final pathology. Palliative care consulted. (4) Congestive heart failure (CHF) Current Visit: Yes Status: Acute Qualifiers: Congestive heart failure type: systolic Congestive heart failure chronicity : acute on chronic Qualified Code(s): I50.23 - Acute on chronic systolic ( congestive) heart failure (5) Multiple lung nodules Current Visit: Yes Status: Chronic (6) Atrial fibrillation Current Visit: No Status: Chronic Assessment and plan: Continue home medications. Rate controlled currently. Qualifiers: Atrial fibrillation type: chronic Qualified Code(s): I48.2 - Chronic atrial fibrillation (7) Acute kidney injury Current Visit: No Status: Resolved Assessment and plan: has improved, but still appears prerenal (8) DVT prophylaxis Current Visit: Yes Status: Acute Assessment and plan: Heparin 5000 units TID - Time Spent With Patient 25 - 35 minutes - Subjective Interval history: patient awake alert oriented, he is laying in bed and has difficulties getting up he states and required my help to move him upright to the edge of the bed. he has less shortness of breath today. denies chest pain. denies f/n/v/d. 05/24/16 patient is awake, alert and oriented. He watched the [employer] last night. He continues to eat OK and sleep OK, however he's bee having some shortness of breath when laying flat. No fevers/chils/chest pain/nausea/ vomiting. He does have some decr appetite. - Constitutional Vitals: Temp Pulse Resp BP Pulse Ox 97.6 F 69 16 98/66 98 05/24/16 07:49 05/24/16 07:49 05/24/16 07:49 05/24/16 07:49 05/24/16 07:49 Exam: General appearance: Present: A&O X 3, no acute distress, answers questions appropriately - Head Head exam: Present: atraumatic, normocephalic - Eye Eye exam: Present: PERRL, conjuntiva pink, sclera anicteric Pupils: Present: PERRL - Neck Neck exam general surgery: Present: supple, trachea midline. Absent: lymphadenopathy - Respiratory Respiratory exam: Present: rales (bilateral lower and upper lobes crackles). Absent: respiratory distress, wheezes - Cardiovascular Cardiovascular exam: Present: RRR, +S1, +S2. Absent: diastolic murmur, gallop, rubs, systolic murmur - GI/Abdominal GI/Abdominal exam: Present: increasingly distended, non tender, +fluid wave - Extremities Exam Additional comments: b/l le wrapped in howard bandage less tight vs yesterday, edema improved bilaterally - Neurological Exam Neurological exam: Present: CN II-XII intact, oriented X3, no focal deficits. Absent: pronater drift, facial droop, speech deficit Internal Medicine: Result - Labs CBC & Chem 7: 05/24/16 04:51 05/24/16 04:51 Labs: Short CBC 05/24/16 Range/Units 04:51 WBC 11.8 H (4.3-11.1) K/mcL Hgb 12.6 L (12.9-16.9) g/dL Hct 38.9 (37.5-50.1) % Plt Count 232 (140-400) K/mcL BMP 05/24/16 04:51 Sodium 140 Potassium 3.8 Chloride 105 Carbon Dioxide 27 BUN 34 H Creatinine 0.82 Glucose 77 Calcium 8.4 L - ABG Interpretation ABG results: PT/INR, D-dimer PT 12.8 Seconds (9.4-12.1) H 05/18/16 14:18 Consult Discharge Plan - Plan Referrals: Rex Rubi MD [Primary Care Provider] - 05/28/16 10:00 am Vincent Morelos MD [Partnered Physician] - 06/01/16 10:10 am <Major Cadet - Last Filed: 05/24/16 19:10> - Assessment and plan (1) Anasarca Current Visit: Yes Status: Acute (2) Ascites Current Visit: Yes Status: Acute Qualifiers: Ascites type: malignant Qualified Code(s): R18.0 - Malignant ascites (3) Other hypotension Current Visit: Yes Status: Acute (4) Systolic CHF, acute on chronic Current Visit: No Status: Acute (5) Carcinomatosis Current Visit: Yes Status: Acute (6) Atrial fibrillation Current Visit: No Status: Chronic Qualifiers: Atrial fibrillation type: chronic Qualified Code(s): I48.2 - Chronic atrial fibrillation (7) Coronary artery disease Current Visit: No Status: Chronic Qualifiers: Coronary Disease-Associated Artery/Lesion type: [place] artery [place] vs. transplanted heart: [place] heart Associated angina: without angina Qualified Code(s): I25.10 - Atherosclerotic heart disease of [place] coronary artery without angina pectoris - Constitutional Vitals: Temp Pulse Resp BP Pulse Ox 97.5 F L 69 18 102/65 100 05/24/16 15:29 05/24/16 15:29 05/24/16 15:29 05/24/16 15:29 05/24/16 15:29 Internal Medicine: Result - Labs CBC & Chem 7: 05/24/16 04:51 05/24/16 04:51 Labs: Short CBC 05/24/16 Range/Units 04:51 WBC 11.8 H (4.3-11.1) K/mcL Hgb 12.6 L (12.9-16.9) g/dL Hct 38.9 (37.5-50.1) % Plt Count 232 (140-400) K/mcL BMP 05/24/16 04:51 Sodium 140 Potassium 3.8 Chloride 105 Carbon Dioxide 27 BUN 34 H Creatinine 0.82 Glucose 77 Calcium 8.4 L - ABG Interpretation ABG results: PT/INR, D-dimer PT 12.8 Seconds (9.4-12.1) H 05/18/16 14:18 Procedures: Internal Med - Paracentesis Consent Obtained: written consent Time out performed: Yes Indication: Ascites Procedure: therapeutic paracentesis Location: LLQ Local anesthetic used: lidocaine 1% Bedside ultrasound used: yes, Ascites confirmed and location marked Preparation: 11 blade used to make matt in skin Fluid: cloudy Post procedure exam: awake, alert Patient tolerated procedure: well Complications: none Additional comments: Please see event note per Dr Tompkins for details. - Attending Attestation I examined this patient and my medical decision-making was reviewed with the Resident Physician. I agree with the documented findings, disposition and treatment plan as described except to the extent set forth below. Mr. Retana is currently admitted for respiratory distress due to ascites and CHF. He remains high risk due to potential of worsening respiratory issues. He had worsening of ascites today. Mr. Retana had worsening ascites over the weekend. He had paracentesis today with good relief. No other issues. Still awaiting final path results and plans. Exam Alert. Comfortable Heart reg Lungs clear Abd with ascites I/P 1. Resp distress 2. Ascites Further diagnoses and plan as above.
[2016-05-24] MEDS ORDERED: 0.9 % Sodium Chloride 1,000 ML ONE (14:24)
[2016-05-24] MEDS ORDERED: 0.9 % Sodium Chloride 1,000 ML IVC ONE (14:24)
[2016-05-24] MEDS ORDERED: Albumin 25% 25gram/100mL 25 GM/100 ML IV.SOLN IVPB ONE (14:28)
--- NOTE | 2016-05-24 15:13 | Event Note ---
<Johnathon Tompkins Theo - Last Filed: 05/24/16 15:14> Date of Encounter: 05/24/16 Time of Encounter: 14:05 Procedure: Paracentesis Operating Physician: Johnathon Tompkins DO Indication: Therapeutic paracentesis, mobility markedly reduced Anesthesia: 1% Lidocaine Ultrasound guidance was used to locate and srikanth an ascitic pocket. A time-out was completed, verifying correct patient, procedure, site, positioning, and implant(s) or special equipment if applicable. Patient was positioned, prepped, and draped in the usual sterile fashion. 1% Lidocaine was used to anesthetize the area. A standard paracentesis kit needle was introduced into the peritoneal space and 2,800 ml cloudy yellow was removed. Complications: Non Blood loss: Minimal Major Cadet DO was present/immediately available by telephone during the entire procedure. <Major Cadet - Last Filed: 05/24/16 19:11> I was present for procedure and advised during it.
[2016-05-24] MEDS: Cyanocobalamin (B-12) 1,000 MCG TABLET PO SCH (16:44)
[2016-05-24] MEDS: Aspirin 81 MG TAB.CHEW PO SCH (16:44)
[2016-05-24] MEDS: Gabapentin 100 MG CAPSULE PO SCH ×3 (16:44→21:06)
[2016-05-24] MEDS ORDERED: Silvasorb 44.4 ML TUBE TP SCH (16:45)
[2016-05-24] MEDS: *HR* Amiodarone 200 MG TABLET PO SCH (16:45)
[2016-05-24] MEDS: Thiamine (B-1) 100 MG TABLET PO SCH (16:45)
[2016-05-24] MEDS: Folic Acid 1 MG TABLET PO SCH (16:45)
[2016-05-24 21:56] LABS: Bilirubin,Urine Small (Negative); Blood,Urine Negative (Negative); Clarity,Urine Clear (Clear); Color,Urine Dark Yellow (Yellow); Glucose,Urine (UA) Normal (Normal); Ketones,Urine Negative (Negative); Leukocyte Esterase,Urine Negative (Negative); Nitrite,Urine Negative (Negative); Protein,Urine Negative (Neg-Trace); Specific Gravity,Urine 1.019 (1.010-1.025); Urobilinogen,Urine Normal (Normal)
[2016-05-25] MEDS: *HR* Heparin 5,000 UNIT/ML VIAL SQ SCH ×2 (00:23→09:10)
[2016-05-25 06:37] LABS: Basophils # 0.1 K/mcL (0.0-0.2); Basophils % 0.8 %; Eosinophils # 0.2 K/mcL (0.0-0.6); Eosinophils % 1.9 %; Hematocrit 38.9 % (37.5-50.1); Hemoglobin 12.5 g/dL (12.9-16.9); Lymphocytes # 0.5 K/mcL (0.6-4.6); Lymphocytes % 4.6 %; Mean Corpuscular HGB Conc 32.1 g/dL (31.6-35.5); Mean Corpuscular Hemoglobin 26.8 pg (28.0-33.3); Mean Corpuscular Volume 83.3 fL (83.0-100.0); Mean Platelet Volume 11.4 fL (9.4-12.4); Monocytes # 1.2 K/mcL (0.0-1.3); Monocytes % 10.2 %; Neutrophils # 9.1 K/mcL (1.6-8.9); Platelet Count 229 K/mcL (140-400); Red Blood Count 4.67 M/mcL (4.19-5.50); Red Cell Distribution Width 18.7 % (11.5-14.5); Segmented Neutrophils % 77.5 %
[2016-05-25 06:57] LABS: BUN/Creatinine Ratio 41 (6-26); Blood Urea Nitrogen 33 mg/dL (8-26); Calcium 8.6 mg/dL (8.6-10.8); Carbon Dioxide 30 mEq/L (19-29); Chloride 103 mEq/L (98-109); Glucose 77 mg/dL (70-99); Osmolality,Calculated 298 (280-300); Sodium 141 mEq/L (136-145); eGFR For African Americans > 60 (> 60); eGFR For Non-African Americans > 60 (> 60)
[2016-05-25] MEDS: *HR* Amiodarone 200 MG TABLET PO SCH (09:10)
[2016-05-25] MEDS: Furosemide 40 MG/4 ML VIAL IVP SCH (09:10)
[2016-05-25] MEDS: Aspirin 81 MG TAB.CHEW PO SCH (09:10)
[2016-05-25] MEDS: Folic Acid 1 MG TABLET PO SCH (09:10)
[2016-05-25] MEDS: Cyanocobalamin (B-12) 1,000 MCG TABLET PO SCH (09:10)
[2016-05-25] MEDS: Gabapentin 100 MG CAPSULE PO SCH (09:10)
[2016-05-25] MEDS: Thiamine (B-1) 100 MG TABLET PO SCH (09:10)
--- NOTE | 2016-05-25 09:38 | Internal Med Progress Note ---
Date of Encounter: 05/25/16 Time of Encounter: 08:00 - Constitutional Vitals: Temp Pulse Resp BP Pulse Ox 98.1 F 69 20 83/52 100 05/25/16 07:32 05/25/16 07:32 05/25/16 07:32 05/25/16 07:32 05/25/16 07:32 General appearance: Present: A&O X 3, no acute distress, answers questions appropriately Internal Medicine: Result - Labs CBC & Chem 7: 05/25/16 06:12 05/25/16 06:12 Labs: Short CBC 05/25/16 Range/Units 06:12 WBC 11.8 H (4.3-11.1) K/mcL Hgb 12.5 L (12.9-16.9) g/dL Hct 38.9 (37.5-50.1) % Plt Count 229 (140-400) K/mcL Neutrophils # 9.1 H (1.6-8.9) K/mcL BMP 05/25/16 06:12 Sodium 141 Potassium 4.0 Chloride 103 Carbon Dioxide 30 H BUN 33 H Creatinine 0.80 Glucose 77 Calcium 8.6 Urine 05/20/16 Range/Units 21:00 Urine Color Dark Yellow (Yellow) Urine Clarity Clear (Clear) Urine pH 6.0 (5.0-8.0) pH Units Ur Specific [place] 1.019 (1.010-1.025) Urine Protein Negative (Neg-Trace) mg/dL Urine Glucose (UA) Normal (Normal) mg/dL - ABG Interpretation ABG results: PT/INR, D-dimer PT 12.8 Seconds (9.4-12.1) H 05/18/16 14:18 Consult Discharge Plan - Plan Referrals: Rex Rubi MD [Primary Care Provider] - 05/28/16 10:00 am Vincent Morelos MD [Partnered Physician] - 06/01/16 10:10 am
--- NOTE | 2016-05-25 10:57 | Discharge Summary ---
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 (2) Ascites Priority: Secondary Status: Acute Qualifiers: Ascites type: malignant Qualified Code(s): R18.0 - Malignant ascites (3) Anasarca Priority: Secondary Status: Acute (4) Congestive heart failure (CHF) Priority: Secondary Status: Chronic Qualifiers: Congestive heart failure type: systolic Congestive heart failure chronicity : acute on chronic Qualified Code(s): I50.23 - Acute on chronic systolic ( congestive) heart failure (5) Acute kidney injury Priority: Secondary Status: Resolved (6) Multiple lung nodules Priority: Secondary Status: Chronic - Discharge Medications Prescriptions: Cyanocobalamin (B-12) [Vitamin B12] 1,000 mcg PO DAILY #30 tablet Folic Acid 1 mg PO DAILY 30 Days Thiamine (B-1) [Vitamin B-1] 100 mg PO DAILY #30 tablet Home Medications: Aspirin 81 mg PO DAILY #60 tab.chew 01/24/15 [Rx] Amiodarone [Cordarone] 200 mg PO DAILY 11/21/15 [History] Atorvastatin [Lipitor] 10 mg PO HS 11/21/15 [History] Tamsulosin [Flomax] 0.4 mg PO DAILY 11/21/15 [History] Gabapentin [Neurontin] 100 mg PO TID 02/22/16 [History] Carvedilol 3.125 mg PO BID 30 Days 02/26/16 [Rx] Potassium Chloride [K-Tab ER] 20 meq PO DAILY #14 tablet.er 02/26/16 [Rx] Furosemide [Lasix] 40 mg PO BID 05/18/16 [History] Cyanocobalamin (B-12) [Vitamin B12] 1,000 mcg PO DAILY #30 tablet 05/25/16 [Rx] Folic Acid 1 mg PO DAILY 30 Days 05/25/16 [Rx] Thiamine (B-1) [Vitamin B-1] 100 mg PO DAILY #30 tablet 05/25/16 [Rx] Allergies/Adverse Reactions: Allergies No Known Allergies Allergy (Verified 02/22/16 17:25) Date of admission: 05/19/16 08:16 Primary care physician: Rex Rubi MD Consults: 05/23/16 18:43 Consult to Wound Care [CONS] Routine Reason for Consult: new redness/eschar bilat lower shins from "[facility]" Call Completed: No 05/19/16 10:35 Consult to Occupational Therapy [CONS] Urgent Comment: Evaluate, develop and implement POC Consult to Physical Therapy [CONS] Urgent Comment: Evaluate, develop and implement POC Discharging clinician: Rhonda Saba Anticipated date of discharge: 05/25/16 - Patient Status Disposition: Transfer SNF Condition: Good Functional capacity at discharge: independent ambulation Overall status at discharge: patient is progressing back to baseline - Discharge Instructions Instructions: Heart Failure (DC) Follow Up With: Rex Rubi MD [Primary Care Provider] - 05/28/16 10:00 am Vincent Morelos MD [Partnered Physician] - 06/01/16 10:10 am Additional Instructions: Please follow up with your primary care provider within a week. - Diet and Activity Activity: increase activity as tolerated Diet: low salt diet Hospital course: Mr. Retana is a 86 year old male with PMH of cardiomyopathy, CHF, s/p TAVR , hyperlipidemia and hypertension. Patient presented with shortness of breath and abdominal distention and was admitted on 05/18/16 for CHF, ELÍAS & ascites. Cardiology was consulted and thinks his presentation is likely secondary to metastatic so no further cardiac work-up. Nephrology was consulted and thinks the ELÍAS is likely secondary to pre-renal and hemodynamics. CT of the abdomen and pelvis demonstrated moderate to large ascites with infiltration of the omentum compatible with peritoneal carcinomatosis. Oncology was consulted for metastatic cancer of unknown primary site and recommends supportive care. Palliative care was consulted to initiate discussion regarding goals of care. IR performed paracentesis on 05/19/16 with 4.5L dark sukhdev fluid removed. Cytology of the peritoneal fluid is positive for markers of mesothelial cells. Another paracentesis was done for therapeutic purpose on 05/24/16 with 2.8 L fluid removed. Patient's shortness of breath and ELÍAS improved over his hospital stay. Patient is currently clinically stable and reports doing fine without significant abdominal discomfort. Will be discharge patient to [facility] and he will have follow up with his PCP and oncologist within a week. - Time Spent with Patient Total time spent providing and/or coordinating discharge services: Greater than 30 minutes - Constitutional Vitals: Temp Pulse Resp BP Pulse Ox 98.1 F 69 20 83/52 100 05/25/16 07:32 05/25/16 07:32 05/25/16 07:32 05/25/16 07:32 05/25/16 07:32 General appearance: Present: A&O X 3, no acute distress, answers questions appropriately - Head Head exam: Present: atraumatic, normocephalic - Eye Eye exam: Present: PERRL, conjuntiva pink, sclera anicteric Pupils: Present: PERRL - Neck Neck exam general surgery: Present: supple, trachea midline. Absent: lymphadenopathy - Respiratory Respiratory exam: Present: rales (Diffuse), rhonchi. Absent: accessory muscle use, wheezes - Cardiovascular Cardiovascular exam: Present: RRR, +S1, +S2. Absent: diastolic murmur, gallop, rubs, systolic murmur - GI/Abdominal GI/Abdominal exam: Present: distended, normal bowel sounds, soft, no peritoneal signs. Absent: tenderness - Extremities Exam Extremities exam: Present: pedal edema (bilateral LE wrapped in howard bandage), warm, radial pulses palpable and symetrical. Absent: calf tenderness, cyanotic - Neurological Exam Neurological exam: Present: CN II-XII intact, oriented X3, no focal deficits. Absent: pronater drift, facial droop, speech deficit - Skin Skin exam: Present: dry, intact <Josephine,Jonah P - Last Filed: 05/25/16 19:07> Date of admission: 05/19/16 08:16 Primary care physician: Rex Rubi MD Consults: 05/23/16 18:43 Consult to Wound Care [CONS] Routine Reason for Consult: new redness/eschar bilat lower shins from "[facility]" Call Completed: No 05/19/16 10:35 Consult to Occupational Therapy [CONS] Urgent Comment: Evaluate, develop and implement POC Consult to Physical Therapy [CONS] Urgent Comment: Evaluate, develop and implement POC Hospital course: Mr. Retana is a 86 year old male - Time Spent with Patient Total time spent providing and/or coordinating discharge services: - Constitutional Vitals: Temp Pulse Resp BP Pulse Ox 97.1 F L 70 18 92/65 100 05/25/16 11:38 05/25/16 11:38 05/25/16 11:38 05/25/16 11:38 05/25/16 11:38 - Attending Attestation I examined this patient and my medical decision-making was reviewed with the [employer]MB[employer] FIRMWARE ENGINEER/PA/Advanced Practice Nurse/Resident Physician. I agree with the documented findings, disposition and treatment plan as described except to the extent set forth below.
--- NOTE | 2016-05-25 11:41 | Physician Discharge Referral ---
<Rhonda Saba - Last Filed: 05/25/16 11:38> [facility]Care Referral Info Transfer To: [facility] Provider in Charge after Transfer: PCP Institutional Level of Care: Skilled - Diagnosis (1) Carcinomatosis Status: Acute (2) Ascites Status: Acute (4) Congestive heart failure (CHF) Status: Acute - Transfer Medications Prescriptions: Cyanocobalamin (B-12) [Vitamin B12] 1,000 mcg PO DAILY #30 tablet Folic Acid 1 mg PO DAILY 30 Days Thiamine (B-1) [Vitamin B-1] 100 mg PO DAILY #30 tablet Home Medications: Aspirin 81 mg PO DAILY #60 tab.chew 01/24/15 [Rx] Amiodarone [Cordarone] 200 mg PO DAILY 11/21/15 [History] Atorvastatin [Lipitor] 10 mg PO HS 11/21/15 [History] Tamsulosin [Flomax] 0.4 mg PO DAILY 11/21/15 [History] Gabapentin [Neurontin] 100 mg PO TID 02/22/16 [History] Carvedilol 3.125 mg PO BID 30 Days 02/26/16 [Rx] Potassium Chloride [K-Tab ER] 20 meq PO DAILY #14 tablet.er 02/26/16 [Rx] Furosemide [Lasix] 40 mg PO BID 05/18/16 [History] Cyanocobalamin (B-12) [Vitamin B12] 1,000 mcg PO DAILY #30 tablet 05/25/16 [Rx] Folic Acid 1 mg PO DAILY 30 Days 05/25/16 [Rx] Thiamine (B-1) [Vitamin B-1] 100 mg PO DAILY #30 tablet 05/25/16 [Rx] Allergies/Adverse Reactions: Allergies No Known Allergies Allergy (Verified 02/22/16 17:25) - Respiratory Orders Oxygen / L per min (2) Smoking Cessation: Smoking cessation has been advised. For more information, call the [employer] Tobacco Quit Line at 2-153-MNOD-NOW. - Ancillary Orders May use pressure relief devices daily prn - Advance Directives Code Status: Full Code - Mobility Orders Ambulate - Rehabiliation Orders Rehab Potential: Fair Rehab Orders: Evaluation for Physical Therapy, Evaluation for Occupational Therapy - Diet Orders Renal CERTIFICATION: I certify that the transfer of the above named patient to an Extended Care Facility is necessary for the continuing treatment of the diagnosis listed. The above information is true and accurate reflection of patient's current condition. Confidential - Redisclosure prohibited without a patient's written consent. <Jonah Burton P - Last Filed: 05/25/16 19:08> - Respiratory Orders Smoking Cessation: Smoking cessation has been advised. For more information, call the [place] Tobacco Quit Line at 4-019-WFYO-NOW. CERTIFICATION: I certify that the transfer of the above named patient to an Extended Care Facility is necessary for the continuing treatment of the diagnosis listed. The above information is true and accurate reflection of patient's current condition. Confidential - Redisclosure prohibited without a patient's written consent.
[2016-05-25 11:42] VITALS: BP 92/65
== END 2016-05-25 13:35 | DRG 374 ==
LOC: EMEROO 13:48 → 2NENU 13:48
PROVIDERS: ADMIT Internal Medicine; ATTEND Internal Medicine